=== PATIENT | male | born 1955 | race Caucasian/White ===

== ENCOUNTER → 2018-04-28 16:17 | Outpatient (CLI) | payer OTHER, SELFPAY ==
--- NOTE | 2018-04-28 16:37 | DI.MRI.S_ITS ---
PROCEDURE: MR CERVICAL SPINE WO CON INDICATIONS: Neck pain. Bilateral medial elbow pain. Bilateral hand numbness TECHNIQUE: Noncontrast sagittal T1 spin echo and T2 fast spin echo, sagittal STIR, foraminal oblique sagittal T2 fast spin echo, and axial gradient echo or T2 fast spin echo through the cervical spine. COMPARISON: None. FINDINGS: Image quality: Excellent. Alignment and Curvature: There is reversal of cervical curvature. There is trace anterolisthesis of C3 on C4, trace retrolisthesis of C4 on C5, C5 on C6, C7 on T1. Bone Marrow: Marrow demonstrates normal overall signal. Mild reactive endplate changes are present at T1-T2 as well as C5-6, minimal throughout the remainder of the cervical spine. Spinal Cord: Visualized spinal cord has normal size and signal. No cerebellar tonsillar herniation. Paraspinous Soft Tissues: No paravertebral masses. Prevertebral soft tissues are normal in thickness. Discs: Severe desiccation is present throughout the cervical spine. C2-C3: Mild disc bulge without spinal stenosis. Moderate to severe left foraminal narrowing with uncovertebral hypertrophy. C3-C4: Mild disc bulge with mild spinal stenosis. Severe left and moderate to severe right foraminal narrowing with uncovertebral hypertrophy. C4-C5: Mild disc bulge with severe spinal stenosis. Severe bilateral foraminal narrowing with uncovertebral hypertrophy. C5-C6: Mild disc bulge with severe spinal stenosis and severe right and moderate to severe left foraminal narrowing. Uncovertebral hypertrophy is present. C6-C7: Mild disc bulge with moderate to severe spinal stenosis. Foramina are obscured in part secondary to motion. However there still to be high degree of bilateral foraminal narrowing with uncovertebral hypertrophy. C7-T1: Mild disc bulge with mild spinal stenosis. Moderate spinal stenosis is present. Foramina are obscured. However there is felt to be at least moderate bilateral foraminal narrowing, left greater than right. IMPRESSION: 1. Significant multilevel foraminal narrowing. 2. Severe spinal stenosis at C4-5, C5-6 secondary to disc bulges with contributing factor of retrolisthesis and uncovertebral arthropathy. 3. Significant multilevel foraminal narrowing, severe at C3-4, C4-5, C5-6 secondary to uncovertebral arthropathy. Dictated by: Alexus Perez M.D. on 04/29/2018 at 9:13 Approved by: Alexus Perez M.D. on 04/29/2018 at 9:26
== END ==
PROVIDERS: Family Provider Family Medicine; PCP Family Medicine; Visit Provider Family Medicine
DX: M48.02 Spinal stenosis, cervical region (principal); M43.12 Spondylolisthesis, cervical region; M54.2 Cervicalgia; M25.522 Pain in left elbow; M25.521 Pain in right elbow; R20.0 Anesthesia of skin
CPT/HCPCS: 72141

== ENCOUNTER → 2018-06-27 15:25 | Outpatient (CLI) | payer OTHER, SELFPAY ==
--- NOTE | 2018-06-27 | DI.RAD.S_ITS ---
PROCEDURE: XR FOOT RT MIN 3V INDICATIONS: RIGHT FOOT PAIN TECHNIQUE: 3 views of the foot were acquired. COMPARISON: None. FINDINGS: Bones: No fractures or dislocations. No suspicious bony lesions. Diffuse DIP degenerative joint space narrowing is present. Small calcaneal spur is present. Soft tissues: No tibiotalar joint effusion. Achilles tendon appears normal. IMPRESSION: Diffuse DIP degenerative narrowing. If clinical concern persists, MRI is recommended for further evaluation. Dictated by: Alexus Perez M.D. on 06/27/2018 at 17:06 Approved by: Alexus Perez M.D. on 06/27/2018 at 17:07
== END ==
PROVIDERS: Family Provider Family Medicine; PCP Family Medicine; Visit Provider Family Medicine
DX: M79.671 Pain in right foot (principal); M77.31 Calcaneal spur, right foot
CPT/HCPCS: 73630

== ENCOUNTER 2018-11-30 04:59 | Emergency (ER) | payer OTHER, SELFPAY ==
[2018-11-30 05:00] VITALS: BP 168/117; PULSE 99; RESP 18; TEMP 36.4; O2SAT 97; BMI 36.2
[2018-11-30] MEDS: methylPREDNISolone 125 MG/2 ML VIAL IV (05:29)
[2018-11-30] MEDS: FAMOTIDINE 20 MG/50 ML PIGGYBACK 200 MG IV (05:30)
[2018-11-30] MEDS: diphenhydrAMINE 50 MG/ML VIAL 25 MG IV (05:30)
--- NOTE | 2018-11-30 05:44 | ED_ITS ---
HPI - Skin/Abscess/Foreign Bdy General Chief complaint: Skin/Abscess/Foreign Body Stated complaint: woke up with itchy rash/hives all over Time Seen by Provider: 11/30/18 05:00 Source: patient Mode of arrival: ambulatory Limitations: no limitations History of Present Illness HPI narrative: 62-year-old male nonsmoker with history of hypertension, factor 5 Leiden and hyperlipidemia presents with a chief complaint of widespread itching rash over the course of last night and this morning. He had an episode a few days ago as well which was much more mild. He thinks it may be due to the ingestion of a small watermelon that is new for him. He states it tasted a bit funny so perhaps that is the cause. He denies any swelling of tongue, lips or throat. He denies any new medications, lotions, soaps or pets. MD complaint: rash Onset (ago): hour(s) Tetanus up to date: yes Location: generalized Severity: moderate Quality: pruritic Relieving factors: none Exacerbating factors: none Associated symptoms: denies other symptoms Treatments prior to arrival: Benadryl Related Data Home Medications Medication Instructions Recorded Confirmed HYDROCHLOROTHIAZIDE (Hydrodiuril / 25 mg PO DAILY #0 09/07/09 Hctz) WARFARIN SODIUM (COUMADIN) 8 mg PO Q DAY #0 10/07/10 lisinopril 20 mg PO QDAY #0 08/09/16 lovastatin 20 mg PO HS #0 08/09/16 Previous Rx's Medication Instructions Recorded dexamethasone 4 mg PO Q8H 5 Days #15 tab 11/30/18 Allergies Allergy/AdvReac Type Severity Reaction Status Date / Time prednisone AdvReac Intermediate Anxiety Verified 11/30/18 05:26 Review of Systems Constitutional Denies chills, Denies fever(s), Denies lethargy and Denies weakness Eyes Denies change in vision, Denies eye discharge, Denies irritation and Denies loss of vision ENT Ears, Nose, Mouth, and Throat: Denies change in voice, Denies neck pain and De nies sore throat Cardiovascular Denies chest pain, Denies irregular heart rhythm, Denies lightheadedness, Denies palpitations, Denies dyspnea, Denies dyspnea on exertion and Denies orthopnea Respiratory Denies cough, Denies dyspnea, Denies dyspnea on exertion and Denies wheezing Gastrointestinal Gastrointestinal: Denies abdominal pain, Denies change in bowel habits, Denies diarrhea, Denies nausea and Denies vomiting Genitourinary Denies hematuria, Denies flank pain, Denies urinary incontinence and Denies urinary urgency Musculoskeletal Denies neck pain Integumentary/Breasts Reports pruritus, Denies erythema, Reports rash and Denies wounds Neurologic Denies confusion, Denies loss of vision and Denies weakness Psychiatric Denies anxiety, Denies confusion, Denies depression, Denies homicidal ideation and Denies suicidal ideation Endocrine Denies palpitations Hematologic/Lymphatic Denies easy bruising Allergic/Immunologic Denies wheezing PFSH Social History Smoking Status: Never smoker alcohol intake: current Exam Narrative Exam Narrative: GEN: AOx3 and in mild distress EYES: Pupils are equal, round, and reactive to light and accommodation. Extraoccular muscles are intact bilaterally. There is no subconjunctival hemorrhage or exudate. ENT: No tongue, lip or throat swelling CHEST: Lungs are clear to auscultation bilaterally and free of wheezes, rales, or rhonchi. Heart rate is regular rhythm, there are no murmurs, clicks, rubs, or gallops. There is no chest wall tenderness. ABD: Abdomen is soft and nontender. There is no guarding or rebound. Bowel sounds are normal in all 4 quadrants. There is no mass or organomegaly. EXT: Full painless ROM of all extremities with no loss of sensation or strength. SKIN: Widespread pruritic, erythematous blanching rash Initial Vital Signs Initial Vital Signs: Vital Signs Temperature 97.5 F L 11/30/18 05:00 Pulse Rate 99 H 11/30/18 05:00 Respiratory Rate 18 11/30/18 05:00 Blood Pressure 168/117 H 11/30/18 05:00 Pulse Oximetry 97 11/30/18 05:00 Course Orders Ordered: Discontinued Medications Diphenhydramine HCl (Benadryl) 25 mg IV NOW ONE Stop: 11/30/18 05:10 Last Admin: 11/30/18 05:30 Dose: 25 mg Famotidine (Pepcid) 20 mg in 50 mls @ 200 mls/hr IV NOW ONE Stop: 11/30/18 05:23 Last Infusion: 11/30/18 05:45 Dose: 0 mls/hr Admin: 11/30/18 05:30 Dose: 200 mls/hr Methylprednisolone (Solu-Medrol 125 Mg Vial) 125 mg IV NOW ONE Stop: 11/30/18 05:10 Last Admin: 11/30/18 05:29 Dose: 125 mg Vital Signs - 8 hr 11/30/18 05:00 Temperature 97.5 F L Pulse Rate 99 H Respiratory Rate 18 Blood Pressure 168/117 H Pulse Oximetry 97 Discharge Plan Departure Patient Disposition: Home Clinical Impression: Allergic reaction Qualifiers: Encounter type: initial encounter Qualified Code(s): T78.40XA - Allergy, unspecified, initial encounter Instructions: DI for General Allergic Reactions Activity Restrictions/Additional Instructions: *You have been diagnosed with [ allergic reaction ] *What to do: *Take medications as directed including the provided prescription as well as [id number]-[id number] Benadryl and Pepcid *Follow up with your primary care provider in 2-3 days, call for an appointment. Let them know you were seen in the Emergency Department and that we ask that you be seen in follow up *Return to ER if you should have any new, worsening or concerning symptoms Prescriptions: New dexamethasone 4 mg tablet 4 mg PO Q8H 5 Days Qty: 15 RF: 0 No Action HYDROCHLOROTHIAZIDE (Hydrodiuril / Hctz) 25 mg PO DAILY Qty: 0 RF: 0 WARFARIN SODIUM (COUMADIN) 8 mg PO Q DAY Qty: 0 RF: 0 lisinopril 20 MG tablet 20 mg PO QDAY Qty: 0 RF: 0 lovastatin 20 MG tablet 20 mg PO HS Qty: 0 RF: 0 Referrals: Michael Shook MD [Primary Care Provider] -
--- NOTE | 2018-11-30 05:58 | PC.NURSE ---
Re-evaluated pt. Pt states he has less itching, but sleepy now. Redness of skin has greatly improved. Dr. Ortiz updated.
[2018-11-30 06:30] VITALS: BP 160/101; PULSE 81; RESP 18; O2SAT 95
== END 2018-11-30 06:30 | disposition home or self-care (01) ==
PROVIDERS: Emergency Provider Emergency Medicine; Family Provider Family Medicine; PCP Family Medicine
DX: T78.40XA Allergy, unspecified, initial encounter (principal); R21 Rash and other nonspecific skin eruption
CPT/HCPCS: 96365; 96375; 99283; 99284; J1200; J2930

== ENCOUNTER → 2018-12-19 08:22 | Outpatient (REF) | payer OTHER, SELFPAY ==
[2018-12-19 08:30] LABS: INR 2.5 (0.9-1.3); Prothrombin Time 28.9 SECONDS (10.1-12.7)
== END ==
LOC: LAB 08:22
PROVIDERS: Family Provider Family Medicine; PCP Family Medicine; Visit Provider Family Medicine
DX: Z79.01 Long term (current) use of anticoagulants (principal)
CPT/HCPCS: 85610

== ENCOUNTER → 2019-01-19 08:13 | Outpatient (REF) | payer OTHER, SELFPAY ==
[2019-01-19 09:20] LABS: INR 1.9 (0.9-1.3); Prothrombin Time 21.9 SECONDS (10.1-12.7)
== END ==
LOC: LAB 08:13
PROVIDERS: Family Provider Family Medicine; PCP Family Medicine; Visit Provider Family Medicine
DX: Z79.01 Long term (current) use of anticoagulants (principal)
CPT/HCPCS: 85610

== ENCOUNTER → 2019-02-23 07:35 | Outpatient (ROUT) | payer OTHER, SELFPAY ==
[2019-02-23 07:43] LABS: INR 2.1 (0.9-1.3); Prothrombin Time 24.1 SECONDS (10.1-12.7)
== END ==
PROVIDERS: Family Provider Family Medicine; PCP Family Medicine; Visit Provider Family Medicine
DX: Z79.01 Long term (current) use of anticoagulants (principal)
CPT/HCPCS: 85610

== ENCOUNTER → 2019-03-27 13:23 | Outpatient (ROUT) | payer OTHER, SELFPAY ==
[2019-03-27 13:50] LABS: INR 2.2 (0.9-1.3); Prothrombin Time 26.1 SECONDS (10.1-12.7)
== END ==
PROVIDERS: Family Provider Family Medicine; PCP Family Medicine; Visit Provider Family Medicine
DX: Z79.01 Long term (current) use of anticoagulants (principal)
CPT/HCPCS: 85610

== ENCOUNTER → 2019-04-14 08:36 | Outpatient (ROUT) | payer OTHER, SELFPAY ==
[2019-04-14 09:07] LABS: INR 2.7 (0.9-1.3); Prothrombin Time 31.3 SECONDS (10.1-12.7)
== END ==
PROVIDERS: Family Provider Family Medicine; PCP Family Medicine; Visit Provider Family Medicine
DX: Z79.01 Long term (current) use of anticoagulants (principal)
CPT/HCPCS: 85610

== ENCOUNTER → 2019-04-27 10:32 | Outpatient (CLI) | payer OTHER, SELFPAY ==
--- NOTE | 2019-04-27 | DI.RAD.S_ITS ---
PROCEDURE: XR ABDOMEN 1V INDICATIONS: ABDOMINAL PAIN TECHNIQUE: One view of the abdomen acquired. COMPARISON: [facility], CT, IVP (ABD & PEL WWO CONTRAST), 06/18/2014, 7:28. FINDINGS: Surgical changes and devices: None. Bowel: Bowel gas pattern is normal. Soft tissues: No suspicious abdominal calcifications. Visualized solid organ contours appear normal in size. Left renal cyst redemonstrated. Bones: No suspicious bony lesions. IMPRESSION: Normal bowel gas pattern and no source for abdominal pain identified radiographically. If pain persists, consider CT. Dictated by: Ryan DOZIER Interpreted: Rolo Correa MD on 04/27/2019 at 11:19 Approved by: Rolo Correa M.D. on 04/27/2019 at 11:54
== END ==
PROVIDERS: Family Provider Family Medicine; PCP Family Medicine; Visit Provider Family Medicine
DX: R10.9 Unspecified abdominal pain (principal)
CPT/HCPCS: 74018

== ENCOUNTER → 2019-05-24 12:41 | Outpatient (ROUT) | payer OTHER, SELFPAY ==
[2019-05-24 12:48] LABS: INR 2.3 (0.9-1.3); Prothrombin Time 26.3 SECONDS (10.1-12.7)
== END ==
PROVIDERS: Family Provider Family Medicine; PCP Family Medicine; Visit Provider Family Medicine
DX: Z79.01 Long term (current) use of anticoagulants (principal)
CPT/HCPCS: 85610

== ENCOUNTER → 2019-08-24 14:13 | Outpatient (ROUT) | payer OTHER, SELFPAY ==
[2019-08-24 14:49] LABS: INR 1.4 (0.9-1.3); Prothrombin Time 16.4 SECONDS (10.1-12.7)
== END ==
PROVIDERS: Family Provider Family Medicine; PCP Family Medicine; Visit Provider Family Medicine
DX: D68.59 Other primary thrombophilia (principal); Z86.718 Personal history of other venous thrombosis and embolism
CPT/HCPCS: 85610

== ENCOUNTER → 2019-09-07 13:53 | Outpatient (ROUT) | payer OTHER, SELFPAY ==
[2019-09-07 14:03] LABS: INR 2.1 (0.9-1.3); Prothrombin Time 25.2 SECONDS (10.1-12.7)
== END ==
PROVIDERS: Family Provider Family Medicine; PCP Family Medicine; Visit Provider Family Medicine
DX: Z86.718 Personal history of other venous thrombosis and embolism (principal); D68.59 Other primary thrombophilia
CPT/HCPCS: 85610

== ENCOUNTER → 2019-10-12 11:56 | Outpatient (ROUT) | payer OTHER, SELFPAY ==
[2019-10-12 12:10] LABS: INR 2.9 (0.9-1.3); Prothrombin Time 33.8 SECONDS (10.1-12.7)
== END ==
PROVIDERS: Family Provider Family Medicine; PCP Family Medicine; Visit Provider Family Medicine
DX: D68.59 Other primary thrombophilia (principal)
CPT/HCPCS: 85610

== ENCOUNTER → 2019-11-02 13:12 | Outpatient (ROUT) | payer OTHER, SELFPAY ==
[2019-11-02 13:47] LABS: INR 2.2 (0.9-1.3); Prothrombin Time 25.9 SECONDS (10.1-12.7)
== END ==
PROVIDERS: Family Provider Family Medicine; PCP Family Medicine; Visit Provider Family Medicine
DX: Z79.01 Long term (current) use of anticoagulants (principal)
CPT/HCPCS: 85610

== ENCOUNTER → 2019-11-23 12:18 | Outpatient (ROUT) | payer OTHER, SELFPAY ==
[2019-11-23 12:25] LABS: INR 2.8 (0.9-1.3); Prothrombin Time 32.1 SECONDS (10.1-12.7)
== END ==
PROVIDERS: Family Provider Family Medicine; PCP Family Medicine; Visit Provider Family Medicine
DX: Z79.01 Long term (current) use of anticoagulants (principal)
CPT/HCPCS: 85610

== ENCOUNTER → 2020-02-06 10:38 | Outpatient (ROUT) | payer OTHER, SELFPAY ==
[2020-02-06 10:50] LABS: INR 2.6 (0.9-1.3); Prothrombin Time 29.9 SECONDS (10.1-12.7)
== END ==
PROVIDERS: Family Provider Family Medicine; PCP Family Medicine; Visit Provider Family Medicine
DX: Z79.01 Long term (current) use of anticoagulants (principal)
CPT/HCPCS: 85610

== ENCOUNTER → 2020-04-10 09:05 | Outpatient (ROUT) | payer OTHER, SELFPAY ==
[2020-04-10 09:14] LABS: INR 2.5 (0.9-1.3); Prothrombin Time 28.1 SECONDS (10.1-12.7)
== END ==
PROVIDERS: Family Provider Family Medicine; PCP Family Medicine; Visit Provider Family Medicine
DX: Z86.718 Personal history of other venous thrombosis and embolism (principal); D68.59 Other primary thrombophilia
CPT/HCPCS: 85610

== ENCOUNTER → 2020-05-22 08:14 | Outpatient (ROUT) | payer OTHER, SELFPAY ==
[2020-05-22 08:21] LABS: INR 2.2 (0.9-1.3); Prothrombin Time 25.6 SECONDS (10.1-12.7)
== END ==
PROVIDERS: Family Provider Family Medicine; PCP Family Medicine; Visit Provider Family Medicine
DX: D68.59 Other primary thrombophilia (principal)
CPT/HCPCS: 85610

== ENCOUNTER → 2020-06-12 09:28 | Outpatient (ROUT) | payer OTHER, SELFPAY ==
[2020-06-12 09:39] LABS: INR 2.4 (0.9-1.3); Prothrombin Time 28.1 SECONDS (10.1-12.7)
== END ==
PROVIDERS: Family Provider Family Medicine; PCP Family Medicine; Visit Provider Family Medicine
DX: Z79.01 Long term (current) use of anticoagulants (principal)
CPT/HCPCS: 85610

== ENCOUNTER → 2020-07-10 15:36 | Outpatient (ROUT) | payer OTHER, SELFPAY ==
[2020-07-10 15:55] LABS: INR 2.7 (0.9-1.3); Prothrombin Time 30.6 SECONDS (10.1-12.7)
== END ==
PROVIDERS: Family Provider Family Medicine; PCP Family Medicine; Visit Provider Family Medicine
DX: D68.59 Other primary thrombophilia (principal); Z86.718 Personal history of other venous thrombosis and embolism
CPT/HCPCS: 85610

== ENCOUNTER → 2020-08-13 15:48 | Outpatient (ROUT) | payer OTHER, SELFPAY ==
[2020-08-13 15:58] LABS: INR 2.8 (0.9-1.3); Prothrombin Time 31.6 SECONDS (10.1-12.7)
== END ==
PROVIDERS: Family Provider Family Medicine; PCP Family Medicine; Visit Provider Family Medicine
DX: Z86.718 Personal history of other venous thrombosis and embolism (principal)
CPT/HCPCS: 85610

== ENCOUNTER → 2020-09-17 07:37 | Outpatient (ROUT) | payer OTHER, SELFPAY ==
[2020-09-17 07:45] LABS: INR 2.9 (0.9-1.3); Prothrombin Time 32.4 SECONDS (10.1-12.7)
== END ==
PROVIDERS: Family Provider Family Medicine; PCP Family Medicine; Visit Provider Family Medicine
DX: Z79.01 Long term (current) use of anticoagulants (principal)
CPT/HCPCS: 85610

== ENCOUNTER → 2021-11-25 16:58 | Outpatient (CLI) | payer OTHER, SELFPAY ==
--- NOTE | 2021-11-25 17:01 | DI.RAD.S_ITS ---
PROCEDURE: XR KUB INDICATIONS: HEMATURIA TECHNIQUE: One view of the abdomen acquired. COMPARISON: [facility], CT, CT IVP, 08/06/2020, 15:02. FINDINGS: Surgical changes and devices: None. Bowel: Scattered small bowel and colonic gas. Soft tissues: No suspicious abdominal calcifications. Visualized solid organ contours appear normal in size. Bones: No suspicious bony lesions. Subchondral cystic change at the hips. Mild joint space narrowing. IMPRESSION: No kidney stones identified. Consider CT KUB or CT IVP for further evaluation. Dictated by: Ruben Mccray M.D. on 11/25/2021 at 17:47 Approved by: Ruben Mccray M.D. on 11/25/2021 at 17:50
== END ==
PROVIDERS: Family Provider Family Medicine; PCP Family Medicine; Referring Provider Family Medicine; Visit Provider Family Medicine
DX: R31.9 Hematuria, unspecified (principal)
CPT/HCPCS: 74018

== ENCOUNTER → 2022-01-17 13:24 | Outpatient (CLI) | payer OTHER, SELFPAY ==
--- NOTE | 2022-01-17 13:25 | DI.RAD.S_ITS ---
PROCEDURE: XR CHEST 2V INDICATIONS: cough TECHNIQUE: 2 views of the chest were acquired. COMPARISON: [facility], CHEST 2 VIEW, 02/05/2016, 11:05. [facility], CHEST 2 VIEW, 12/29/2017, 17:01. FINDINGS: Surgical changes and devices: Postoperative change of the right shoulder can be seen. Lungs and pleura: An incomplete inspiratory result is noted, causing a crowded appearance to the lung markings. No focal infiltrates are seen. No pneumothorax or significant pleural effusions are seen. Mediastinum: Mediastinal contours are normal. Heart size is normal. Bones and chest wall: No suspicious bony abnormalities. Age-appropriate bony degenerative changes are seen. Soft tissues appear unremarkable. IMPRESSION: Low lung volumes, without a focal infiltrate identified. Dictated by: Quique Acosta M.D. on 01/17/2022 at 12:58 Approved by: Quique Acosta M.D. on 01/17/2022 at 12:58
== END ==
PROVIDERS: Family Provider Family Medicine; PCP Family Medicine; Referring Provider Surgery; Visit Provider Surgery
DX: R05.9 Cough, unspecified (principal)
CPT/HCPCS: 71046

== ENCOUNTER → 2022-01-20 09:47 | Outpatient (CLI) | payer OTHER, SELFPAY | PROVIDERS: Family Provider Family Medicine; PCP Family Medicine; Referring Provider Surgery; Visit Provider Surgery | DX: R07.9 Chest pain, unspecified (principal) | CPT/HCPCS: 93005 ==

== ENCOUNTER 2022-02-22 11:48 | Emergency (ER) | payer OTHER, SELFPAY ==
[2022-02-22 11:52] VITALS: BP 197/102; PULSE 55; RESP 16; TEMP 36.9; O2SAT 98; BMI 36.6
--- NOTE | 2022-02-22 11:58 | DI.US.S_ITS ---
PROCEDURE: US PERIPH VENOUS LOW EXTREM RT INDICATIONS: RIGHT LEG PAIN, EDEMA TECHNIQUE: Real-time imaging, as well as color and pulse Doppler interrogation, were performed of the lower extremity deep veins from the inguinal ligament to the popliteal fossa. COMPARISON: None. FINDINGS: The common femoral, femoral and popliteal veins are normally compressible, and free of intraluminal thrombus. Color and pulse Doppler demonstrate normal phasic intraluminal flow. There is normal augmentation response to distal compression maneuver. IMPRESSION: No evidence of DVT, right lower extremity Approved by: Garrick Garrett M.D. on 02/22/2022 at 12:09
--- NOTE | 2022-02-22 14:56 | ED.LOWEXIN ---
HPI - Extremity Injury (Lower) <Hanna Fairbanks PA-C - Last Filed: 02/22/22 20:43> General Chief Complaint: Extremity Injury, Lower Stated Complaint: Right leg swollen- has hx of blood clots Time Seen by Provider: 02/22/22 12:11 History of Present Illness HPI Narrative: Patient is a 66-year-old man presenting with right leg swelling since this morning. Patient has factor 5 Leiden and takes warfarin. He denies any shortness of breath, chest pains, numbness, tingling, or pain in his lower right extremity. Patient states the swelling has started to go down since this morning. He states that his right leg does usually swell more than his left leg. He reports increased activity yesterday and was going up and down a ladder a lot. He has bilateral venous stasis and chronic edema for which he wears compression socks regularly and takes 20 mg of Lasix per day. Patient is presenting today with a main concern of a DVT. Related Data Home Medications Medication Instructions Recorded Confirmed ascorbic acid (vitamin C) 500 mg mg PO 01/16/22 02/04/22 capsule cholecalciferol (vitamin D3) 125 125 mcg PO DAILY 01/16/22 02/04/22 mcg (5,000 unit) capsule lisinopril 20 1 tab PO DAILY 01/16/22 02/04/22 mg-hydrochlorothiazide 25 mg tablet lovastatin 40 mg tablet 40 mg PO DAILY 01/16/22 02/04/22 multivitamin with minerals 1 tab PO DAILY 01/16/22 02/04/22 (Multiple Vitamin-Minerals) tamsulosin 0.4 mg capsule 0.4 mg PO DAILY 01/16/22 02/04/22 vitamin B complex 1 cap PO DAILY 01/16/22 02/04/22 warfarin 2 mg tablet 2 mg PO DAILY 01/16/22 02/04/22 warfarin 5 mg tablet 5 mg PO DAILY 01/16/22 02/04/22 Previous Rx's Medication Instructions Recorded sodium sul 1.479 gram-potas ch See Rx Instructions PO PER PKG DIR 01/16/22 0.188 gram-magnes sul 0.225 gram #24 tab tablet (Sutab) Allergies Allergy/AdvReac Type Severity Reaction Status Date / Time prednisone AdvReac Intermediate Anxiety Verified 02/04/22 09:14 Review of Systems <Hanna Fairbanks PA-C - Last Filed: 02/22/22 20:43> Review of Systems Narrative: GENERAL: Denies fatigue, fever, or chills HEENT: Denies ear pain, vision changes, sore throat, or difficulty swallowing RESPIRATORY: Denies shortness of breath, cough, or wheezing CARDIOVASCULAR: See HPI GASTROINTESTINAL: Denies, nausea, vomiting, changes in bowel movements, or abdominal pain : Denies dysuria, frequency, hematuria, or flank pain MUSCULOSKELETAL: Denies weakness, arthralgias, or myalgias SKIN: See HPI NEUROLOGIC: Denies weakness, dizziness, headache, numbness, tingling or confusion PSYCHIATRIC: No concerning psychosocial issues. Patient History <Hanna Fairbanks PA-C - Last Filed: 02/22/22 20:43> Medical History Enlarged prostate Factor V Leiden Hyperlipemia Hypertension Kidney stones Family History Father Cancer Social History Smoking Status: Never smoker alcohol intake: current Smoking Status: Never smoker alcohol intake frequency: holidays/special occasions only Substance Use Type: does not use Exam <Hanna Fairbanks PA-C - Last Filed: 02/22/22 20:43> Narrative Exam Narrative: GENERAL: 66 year old patient appears stated age. Well-developed patient, in no distress. HEAD: Atraumatic. Normocephalic. EYES: Pupils equal round and reactive. Extraocular motions intact. No scleral icterus. No injection or drainage. ENT: Nose without bleeding, purulent drainage. Throat without erythema, tonsillar hypertrophy or exudate. Airway patent. NECK: Trachea midline. Non tender CARDIOVASCULAR: Regular rate and rhythm without murmurs, gallops, or rubs. RESPIRATORY: Clear to auscultation. Breath sounds equal bilaterally. No wheezes, rales, or rhonchi. GASTROINTESTINAL: Abdomen soft, non-tender, nondistended. EXTREMITIES: Bilateral 2+ pitting edema, right calf presents with increased swelling, no erythema present and right leg is not exceptionally hot to touch, bilateral discoloration present that is consistent with venous stasis, full sensation in both lower extremities, he has no pain to palpation. BACK: Nontender without deformity or crepitance. No flank tenderness. NEURO: AOx3. SKIN: No rash or erythema of visible areas Initial Vital Signs Initial Vital Signs: Vital Signs Temperature 98.4 F 02/22/22 11:52 Pulse Rate 55 L 02/22/22 11:52 Respiratory Rate 16 02/22/22 11:52 Blood Pressure 197/102 H 02/22/22 11:52 Pulse Oximetry 98 02/22/22 11:52 <Danish Ortiz DO - Last Filed: 02/23/22 02:07> Initial Vital Signs Initial Vital Signs: Vital Signs Temperature 98.4 F 02/22/22 11:52 Pulse Rate 55 L 02/22/22 11:52 Respiratory Rate 16 02/22/22 11:52 Blood Pressure 197/102 H 02/22/22 11:52 Pulse Oximetry 98 02/22/22 11:52 Course <Hanna Fairbanks PA-C - Last Filed: 02/22/22 20:43> Orders Ordered: ED Orders 02/22/22 11:58 US periph venous low extrem rt Stat 02/22/22 14:55 Prothrombin Time INR Stat Vital Signs Vital signs: Vital Signs - 8 hr 02/22/22 14:59 Pulse Rate 80 Respiratory Rate 18 Blood Pressure 169/89 H Pulse Oximetry 96 <Danish Ortiz DO - Last Filed: 02/23/22 02:07> Orders Ordered: ED Orders 02/22/22 11:58 US periph venous low extrem rt Stat 02/22/22 14:55 Prothrombin Time INR Stat Vital Signs Vital signs: Vital Signs - 8 hr 02/22/22 14:59 Pulse Rate 80 Respiratory Rate 18 Blood Pressure 169/89 H Pulse Oximetry 96 MDM - Extremity Injury (Lower) <ARIS Thompson Last Filed: 02/22/22 20:43> Lab Data Labs: Lab Results 02/22/22 Range/Units 14:55 PT 24.6 H (10.1-12.7) SECONDS INR 2.2 H (0.9-1.3) Imaging Data US - DVT: Radiologist's Impression: [address] [address] Ultrasound Report Signed Patient: Chandan Felzi MR#: [id number] : 1955 Acct:[id number] Age/Sex: 66 / M Date of Service: 02/22/22 Loc: ED Accession Number: [id number] ?? Procedure: US periph venous low extrem rt Ordering Provider: Ronel Cunningham D.O. PROCEDURE:? US PERIPH VENOUS LOW EXTREM RT ? INDICATIONS:? RIGHT LEG PAIN, EDEMA ? TECHNIQUE:? Real-time imaging, as well as color and pulse Doppler interrogation, were performed of the lower extremity deep veins from the inguinal ligament to the popliteal fossa.? ? COMPARISON:? None. ? FINDINGS:? The common femoral, femoral and popliteal veins are normally compressible, and free of intraluminal thrombus.? Color and pulse Doppler demonstrate normal phasic intraluminal flow.? There is normal augmentation response to distal compression maneuver. ? ? IMPRESSION:? No evidence of DVT, right lower extremity ? ? ? Approved by: Garrick Garrett M.D. on 02/22/2022 at 12:09? [facility] Narrative Medical decision making narrative: Patient is a 66-year-old male presenting with right lower extremity swelling starting this morning. He has factor 5 Leiden and takes warfarin. An ultrasound was ordered which came back with no evidence of DVT. His INR was checked which came back at a therapeutic level of 2.2. He exhibited no respiratory distress and his lungs were clear to auscultation bilaterally. Based on the following, it is unlikely that he is suffering from a DVT and that his increased edema is to to his increased physical activity yesterday. I instructed him to continue wearing his compression socks as tolerated, and to double his Lasix dose tonight to help with his increased edema. Findings and discharge diagnosis discussed with patient/family followed by verbalization of understanding Return precautions discussed with patient/family whom verbalize understanding. <Danish Ortiz DO - Last Filed: 02/23/22 02:07> Lab Data Labs: Lab Results 02/22/22 Range/Units 14:55 PT 24.6 H (10.1-12.7) SECONDS INR 2.2 H (0.9-1.3) Discharge Plan Departure Patient Disposition: Home Clinical Impression: Lower leg edema Instructions: DI for Edema Due to Venous Stasis Activity Restrictions/Additional Instructions: As discussed, you can double your Lasix dose today to help decrease your swelling and then resume your regular dosing tomorrow. Continue wearing your compression socks as tolerated. Please return back to the ER with any increased leg swelling, pain, redness, shortness of breath, chest pain or any other concerning symptoms. *What to do: *Please continue to take your regular medications as directed. [ ] New medication prescriptions sent to your pharmacy: [ ] [ ] New medication written as a paper prescription [x] No new medications given *Please follow up with your primary care provider in 2-3 days, call for an appointment. Let them know you were seen in the Emergency Department and that we ask that you be seen in follow up. We will electronically transmit a record of today's note if your PCP is in our system *If you do not have a primary care provider please contact the [facility] at [phone] and they can help get you set up with a doctor in the community. *Return to Emergency Department if you should have any new, worsening or concerning symptoms, such as [fever greater than 101 F, shaking chills, worsening pain, persistent vomiting or other bothersome symptoms] Prescriptions: No Action Sutab 1.479-0.188- 0.225 gram tablet See Rx Instructions PO PER PKG DIR Qty: 24 0RF Rx Instructions: Take as directed by Physician warfarin 5 mg tablet 5 mg PO DAILY 0RF warfarin 2 mg tablet 2 mg PO DAILY 0RF tamsulosin 0.4 mg capsule 0.4 mg PO DAILY 0RF lisinopril-hydrochlorothiazide 20-25 mg tablet 1 tab PO DAILY 0RF lovastatin 40 mg tablet 40 mg PO DAILY 0RF cholecalciferol (vitamin D3) 125 mcg (5,000 unit) capsule 125 mcg PO DAILY 0RF ascorbic acid (vitamin C) 500 mg capsule PO 0RF vitamin B complex Capsule 1 cap PO DAILY 0RF Multiple Vitamin-Minerals Tablet 1 tab PO DAILY 0RF Referrals: Ok Douglass MD [Primary Care Provider] - <Danish Ortiz DO - Last Filed: 02/23/22 02:07> Cosign ED Attending Henrikature Attestation: I was immediately available in the department for consultation. This documentation has been reviewed and I agree with assessment and plan. Supervised by Danish Ortiz DO
[2022-02-22 14:59] VITALS: BP 169/89; PULSE 80; RESP 18; O2SAT 96
[2022-02-22 15:07] LABS: INR 2.2 (0.9-1.3); Prothrombin Time 24.6 SECONDS (10.1-12.7)
== END 2022-02-22 15:46 | disposition home or self-care (01) ==
PROVIDERS: Emergency Provider Physician Assistant; Family Provider Family Medicine; PCP Family Medicine
DX: R60.0 Localized edema (principal); Z79.01 Long term (current) use of anticoagulants
CPT/HCPCS: 36415; 85610; 93971; 99283; 99284

== ENCOUNTER → 2022-02-25 09:21 | Outpatient (CLI) | payer OTHER, SELFPAY ==
[2022-02-25 11:04] LABS: COVID19 -Nasal RAPID Negative (Negative)
== END ==
PROVIDERS: Family Provider Family Medicine; PCP Family Medicine; Visit Provider Surgery
DX: Z20.822 Contact with and (suspected) exposure to COVID-19 (principal); Z01.812 Encounter for preprocedural laboratory examination
CPT/HCPCS: 87635; C9803

== ENCOUNTER 2022-02-26 06:36 | Day surgery (SDC) | payer OTHER, SELFPAY ==
[2022-02-26] VITALS (8 sets, daily range): BP systolic 105–183; BP diastolic 75–91; PULSE 54–78; RESP 12–18; TEMP 36.2–36.4; O2SAT 92–98; BMI 36.2
--- NOTE | 2022-02-26 | PATH_ITS ---
[facility] Accession Number: [id number] No. of containers..01 Tissue . 01 Material submitted: . stomach - ANTRUM . 01 Diagnosis: Stomach, Antrum, Biopsy: Antral mucosa with no diagnostic abnormality. Negative for Helicobacter by immunohistochemistry. Negative for intestinal metaplasia. Negative for dysplasia and malignancy. . [facility] 03/03/2022 1544 Local . 01 Electronically signed: . Shannon Peña MD, Pathologist NPI- [id number] . 01 Gross description: . ANTRUM: Received in formalin are 3 fragment(s) of amaya, soft tissue measuring 0.5 x 0.2 x 0.1 cm to 0.3 x 0.1 x 0.1 cm submitted entirely in 1 cassette(s) /CPE 02/28/2022 0330 Local . 01 Microscopic: . An immunohistochemical stain was performed to evaluate for Helicobacter organisms and is negative. The control stain showed appropriate reactivity. . * This test was developed and its performance characteristics determined by [facility]. It has not been cleared or approved by the U.S. Food and Drug Administration. The FDA has determined that such clearance or approval is not necessary. This test is used for clinical purposes. It should not be regarded as investigational or for research. . 01 Pathologist provided ICD-10: K21.9, Z12.11 . 01 CPT . 682362, Q63219 Specimen Comment: A courtesy copy of this report has been sent to [phone] Performed at: 01 [facility] [address] [place] [address] [address] [facility], [place], [place] [id number] MD Jasen Cordova MD Phone: [phone]
[2022-02-26] MEDS: LACTATED RINGERS 1,000 ML 42 ML IV (07:29)
[2022-02-26] MEDS: LIDOCAINE 4% SOLN 50 ML 20 ML TOP (07:50)
--- NOTE | 2022-02-26 07:52 | PM.PREOP ---
Pre-operative Note COVID-19 COVID-19 status: Negative Result date/Date tested (Pos, Neg/Pending): 02/25/22 Interval Note History & Physical reviewed/Exam performed by Physician: Yes Changes to H&P: No H&P completed within 30 days and has changed as indicated here:: Patient has been bridged with Lovenox and take his last dose of Lovenox yesterday. ASA Class (for procedural sedation): II
[2022-02-26] MEDS: MIDAZOLAM 5 MG/5 ML VIAL 8 MG IV (08:26)
[2022-02-26] MEDS: fentaNYL 250 MCG/5 ML INJ 175 MCG IV (08:26)
--- NOTE | 2022-02-26 08:37 | PM.OP.EC ---
Operative Date/Time/Diagnoses Date of procedure: 02/26/22 Time of procedure: 08:37 Pre-op diagnosis: GERD, colon cancer screening Post-op diagnosis: same Procedure & Clinicians Study performed: EGD and colonoscopy Same procedure as scheduled: Yes Surgeon: James He Procedure Notes Procedure in detail: [place]: James He MD Procedure in detail: A timeout was performed. Bite blocked was placed. The patient was connected via sign monitors. The patient was positioned in a left lateral decubitus position. Sedation was administered with Versed and fentanyl. Once the patient was sedated the endoscope was inserted through the bite block and passed through the esophagus and stomach and into the duodenum. The duodenum appeared normal. The antrum was mildly erythematous and random biopsies were taken from the antrum. The rest of the stomach was normal. The endoscope was retroflexed and no hiatal hernia was noted. The scope was straightened and withdrawn into the esophagus. The Z-line was normal. The rest of the esophagus was normal. Findings: Mild antritis Next we repositioned the patient for a colonoscopy. A digital rectal exam was performed and was normal other than a moderately enlarged prostate. The colonoscope was inserted and advanced to the cecum. The appendiceal orifice was identified and photographed. The scope was slowly withdrawn over greater than 6 minutes. No abnormalities were noted other than a few scattered sigmoid diverticula. The scope was retroflexed in the rectum and mild hemorrhoids were noted. Findings: Mild hemorrhoids and a few scattered sigmoid diverticula EBL: 5 mL from the EGD biopsies Scope withdrawal time: 11 Sedation minutes: 36 Post-procedure Recommendations: Colonscopy in 10 years and Will call with biopsy results Disposition: PACU
== END 2022-02-26 09:40 | disposition home or self-care (01) ==
PROVIDERS: Family Provider Family Medicine; PCP Family Medicine; Referring Provider Surgery; Visit Provider Surgery
PROC: 0DJ08ZZ Inspection of Upper Intestinal Tract, Via Natural or Artificial Opening Endoscopic (ICD-10-PCS; CPT 43235; principal; 2022-02-26 07:45)
PROC: 0DJD8ZZ Inspection of Lower Intestinal Tract, Via Natural or Artificial Opening Endoscopic (ICD-10-PCS; CPT 45378; 2022-02-26 07:45)
DX: Z12.11 Encounter for screening for malignant neoplasm of colon (principal); K21.9 Gastro-esophageal reflux disease without esophagitis; K29.60 Other gastritis without bleeding; K64.8 Other hemorrhoids; K57.30 Diverticulosis of large intestine without perforation or abscess without bleeding
CPT/HCPCS: 43239; 45378; 99152; 99153; J2250; J3010

== ENCOUNTER → 2022-06-11 08:03 | Outpatient (ROUT) | payer OTHER, SELFPAY ==
[2022-06-11 08:37] LABS: INR 2.9 (0.9-1.3); Prothrombin Time 33.6 SECONDS (10.1-12.7)
== END ==
PROVIDERS: Family Provider Family Medicine; PCP Family Medicine; Visit Provider Family Medicine
DX: Z86.718 Personal history of other venous thrombosis and embolism (principal)
CPT/HCPCS: 85610

== ENCOUNTER → 2022-07-10 07:41 | Outpatient (ROUT) | payer OTHER, SELFPAY ==
[2022-07-10 07:52] LABS: INR 3.6 (0.9-1.3); Prothrombin Time 41.6 SECONDS (10.1-12.7)
== END ==
PROVIDERS: Family Provider Family Medicine; PCP Family Medicine; Visit Provider Family Medicine
DX: Z86.718 Personal history of other venous thrombosis and embolism (principal)
CPT/HCPCS: 85610

== ENCOUNTER → 2022-07-24 08:32 | Outpatient (ROUT) | payer OTHER, SELFPAY ==
[2022-07-24 08:38] LABS: INR 2.3 (0.9-1.3); Prothrombin Time 26.1 SECONDS (10.1-12.7)
== END ==
PROVIDERS: Family Provider Family Medicine; PCP Family Medicine; Visit Provider Family Medicine
DX: Z86.718 Personal history of other venous thrombosis and embolism (principal)
CPT/HCPCS: 85610

== ENCOUNTER → 2022-08-05 10:53 | Outpatient (ROUT) | payer OTHER, SELFPAY ==
[2022-08-05 11:05] LABS: INR 3.1 (0.9-1.3); Prothrombin Time 36.5 SECONDS (10.1-12.7)
== END ==
PROVIDERS: Family Provider Family Medicine; PCP Family Medicine; Visit Provider Family Medicine
DX: Z86.718 Personal history of other venous thrombosis and embolism (principal)
CPT/HCPCS: 85610

== ENCOUNTER → 2022-08-31 11:01 | Outpatient (CLI) | payer OTHER, SELFPAY ==
[2022-09-02 07:53] LABS: PSA Free % 23.1 % (.); PSA, Total 8.6 ng/mL (0.0-4.0)
== END ==
PROVIDERS: Family Provider Family Medicine; PCP Family Medicine; Referring Provider Family Medicine; Visit Provider Family Medicine
DX: R97.20 Elevated prostate specific antigen [PSA] (principal)
CPT/HCPCS: 36415; 84153; 84154

== ENCOUNTER → 2022-10-16 08:04 | Outpatient (ROUT) | payer OTHER, SELFPAY ==
[2022-10-16 08:48] LABS: INR 2.5 (0.9-1.3); Prothrombin Time 29.1 SECONDS (10.1-12.7)
== END ==
PROVIDERS: Family Provider Family Medicine; PCP Family Medicine; Visit Provider Family Medicine
DX: Z86.718 Personal history of other venous thrombosis and embolism (principal)
CPT/HCPCS: 85610

== ENCOUNTER → 2022-11-19 08:26 | Outpatient (ROUT) | payer OTHER, SELFPAY ==
[2022-11-19 08:37] LABS: INR 3.4 (0.9-1.3); Prothrombin Time 39.7 SECONDS (10.1-12.7)
== END ==
PROVIDERS: Family Provider Family Medicine; PCP Family Medicine; Visit Provider Family Medicine
DX: Z86.718 Personal history of other venous thrombosis and embolism (principal)
CPT/HCPCS: 85610

== ENCOUNTER → 2022-11-28 14:58 | Outpatient (CLI) | payer OTHER, SELFPAY ==
--- NOTE | 2022-11-28 15:00 | DI.RAD.S_ITS ---
PROCEDURE: XR CERVICAL SPINE 4V OR 5V INDICATIONS: NECK PAIN TECHNIQUE: 5 views of the cervical spine acquired. COMPARISON: None. FINDINGS: Bones: Vertebral body height and bone mineralization within normal limits. Normal craniovertebral relationships. Degenerative disc disease and arthropathy results in grade 1 retrolisthesis at C4-5 and C5-6. Foraminal stenosis noted in the mid cervical spine predominantly on the right Soft tissues: No prevertebral soft tissue swelling. IMPRESSION: Degenerative changes without fracture or traumatic malalignment Approved by: Garrick Garrett M.D. on 11/28/2022 at 15:54
== END ==
PROVIDERS: Family Provider Family Medicine; PCP Family Medicine; Referring Provider Physical Medicine & Rehabilitation; Visit Provider Physical Medicine & Rehabilitation
DX: M54.2 Cervicalgia (principal); M47.812 Spondylosis without myelopathy or radiculopathy, cervical region
CPT/HCPCS: 72050

== ENCOUNTER → 2022-12-30 07:48 | Outpatient (ROUT) | payer OTHER, SELFPAY ==
[2022-12-30 07:55] LABS: INR 2.9 (0.9-1.3); Prothrombin Time 33.5 SECONDS (10.1-12.7)
== END ==
PROVIDERS: Family Provider Family Medicine; PCP Family Medicine; Visit Provider Family Medicine
DX: Z86.718 Personal history of other venous thrombosis and embolism (principal)
CPT/HCPCS: 85610

== ENCOUNTER → 2023-01-26 07:02 | Outpatient (CLI) | payer OTHER, SELFPAY ==
--- NOTE | 2023-01-26 07:03 | DI.MRI.S_ITS ---
PROCEDURE: MR CERVICAL SPINE WO CON INDICATIONS: Cervical radiculopathy right C7 left C6 TECHNIQUE: Noncontrast sagittal T1 spin echo and T2 fast spin echo, sagittal STIR, foraminal oblique sagittal T2 fast spin echo, and axial gradient echo or T2 fast spin echo through the cervical spine. COMPARISON: [facility], MR, MR CERVICAL SPINE WO CON, 04/28/2018, 16:51. [facility], CR, XR CERVICAL SPINE 4V OR 5V, 11/28/2022, 15:00. FINDINGS: Image quality: This examination is limited by involuntary motion artifact. Alignment and Curvature: There is straightening of the normal cervical lordosis. Minimal anterolisthesis is seen at the C3-C4 level. Bone Marrow: Marrow demonstrates normal overall signal. Spinal Cord: Visualized spinal cord has normal size and signal. No cerebellar tonsillar herniation. Paraspinous Soft Tissues: No paravertebral masses. Prevertebral soft tissues are normal in thickness. C2-C3: Moderate loss of disc height is seen. Loss of disc signal is seen. Moderate disc osteophyte complex is seen, which is eccentric to the left side. There is moderate right-sided and moderate to prominent left-sided facet hypertrophy. There is moderate to severe left-sided and no significant right-sided neural foraminal narrowing. Moderate central canal narrowing is seen. When comparison is made with the prior images, these findings are similar. C3-C4: Moderate loss of disc height is seen. Loss of disc signal is seen. Moderate disc osteophyte complex is seen, which is eccentric to the left. There is moderate right-sided and moderate to prominent left-sided facet hypertrophy. There is severe left-sided and moderate to severe right-sided neural foraminal narrowing. Moderate central canal narrowing is seen. There is associated mass effect upon the ventral spinal cord. When comparison is made with the prior images, these findings are similar. C4-C5: Moderate to severe loss of disc height and disc signal can be seen. At least moderate disc osteophyte complex is seen, which is eccentric to the right. There is a central/right disc osteophyte protrusion. Moderate facet joint hypertrophy is seen. Moderate to severe bilateral neural foraminal narrowing can be seen. Moderate to severe central canal narrowing is seen. There is associated mass effect upon the ventral spinal cord. The degree of central canal narrowing is progressed compared to 2018. C5-C6: Moderate to severe loss of disc height and disc signal can be seen. Reactive marrow endplate changes are seen which are hypointense on T1-weighted imaging and hyperintense on T2 weighted imaging, which is most consistent with edema (Modic type I changes). Moderate to severe disc osteophyte complex is seen, which is eccentric to the right side. Moderate facet joint hypertrophy is seen. Moderate to severe bilateral neural foraminal narrowing can be seen, left worse than right. There is moderate to severe central canal narrowing, with associated ventral cord flattening. The degree of central canal narrowing is mildly progressed compared to 2018. C6-C7: Moderate to severe loss of disc height and disc signal can be seen. At least moderate disc osteophyte complex is seen, with a central disc osteophyte protrusion. Mild to moderate facet hypertrophy is seen. There is moderate to severe bilateral neural foraminal narrowing seen, left worse than right. Moderate to severe central canal narrowing is seen, with associated ventral cord flattening. The degree of central canal narrowing is mildly progressed compared to 2018. C7-T1: Moderate to severe loss of disc height and disc signal can be seen. Reactive marrow endplate changes are seen, which are hyperintense on T1-weighted and T2-weighted imaging and most consistent with fatty metaplasia (Modic type II changes). At least moderate disc osteophyte complex is seen, which is eccentric to the right. There is a central/right disc osteophyte protrusion seen. Moderate facet joint hypertrophy is seen. Moderate to severe bilateral neural foraminal narrowing is seen. Moderate central canal narrowing is seen. There is associated mass effect upon the ventral spinal cord. When comparison is made with the prior images, these findings are similar. IMPRESSION: Multiple levels of significant cervical spine degenerative change are seen, which are mildly progressed compared to 2018 at several levels. Dictated by: Quique Acosta M.D. on 01/26/2023 at 10:38 Approved by: Quique Acosta M.D. on 01/26/2023 at 10:44
== END ==
PROVIDERS: Family Provider Family Medicine; PCP Family Medicine; Referring Provider Physical Medicine & Rehabilitation; Visit Provider Physical Medicine & Rehabilitation
DX: M50.123 Cervical disc disorder at C6-C7 level with radiculopathy (principal); M47.22 Other spondylosis with radiculopathy, cervical region
CPT/HCPCS: 72141

== ENCOUNTER → 2023-02-03 07:41 | Outpatient (ROUT) | payer OTHER, SELFPAY ==
[2023-02-03 07:52] LABS: INR 2.6 (0.9-1.3)
== END ==
PROVIDERS: Family Provider Family Medicine; PCP Family Medicine; Visit Provider Family Medicine
DX: Z86.718 Personal history of other venous thrombosis and embolism (principal)
CPT/HCPCS: 85610

== ENCOUNTER 2023-02-16 08:33 | Outpatient (CLI) | payer OTHER, SELFPAY ==
[2023-02-16] VITALS (9 sets, daily range): BP systolic 95–169; BP diastolic 52–85; PULSE 75–86; RESP 14–20; TEMP 36.5; O2SAT 95–98
--- NOTE | 2023-02-16 08:34 | DI.RAD.S_ITS ---
PROCEDURE: PAIN C/T INTERLAMINAR INJECT INDICATIONS: SPINAL STENOSIS COMPARISON: [facility], MR, MR CERVICAL SPINE WO CON, 01/26/2023, 7:28. [facility], CR, XR CERVICAL SPINE 4V OR 5V, 11/28/2022, 15:00. FINDINGS: Fluoroscopic spot filming was performed to verify placement of a spinal needle at the C6-C7 level, as labeled on the films. Appropriate location of the needle tip was confirmed by injection of iodinated contrast. IMPRESSION: No significant intraprocedural abnormality. Dictated by: Quique Acosta M.D. on 02/16/2023 at 12:34 Approved by: Quique Acosta M.D. on 02/16/2023 at 12:35
[2023-02-16] MEDS: MIDAZOLAM 2 MG/2 ML VIAL IV (09:35)
[2023-02-16] MEDS: MIDAZOLAM 2 MG/2 ML VIAL 1 MG IV (09:44)
[2023-02-16] MEDS: IOPAMIDOL 15 ML VIAL 3 ML INJ (09:48)
[2023-02-16] MEDS: BUPIVACAINE 0.25% (PF) VIAL 2 ML INJ (09:49)
[2023-02-16] MEDS: DEXAMETHASONE 10 MG/ML VIAL 30 MG INJ (09:50)
--- NOTE | 2023-02-16 09:57 | P.PCN_ITS ---
Date/Time/Diagnoses Date of procedure: 02/16/23 Time of procedure: 09:57 Pre-procedure diagnosis: 1. CERVICAL STENOSIS, 2. CERVICAL HNP WITH UPPER EXTREMITY RADICULAR FEATURES Post-procedure diagnosis: same Procedure Notes Procedure: 1. FLUORSCOPICALLY GUIDED CONTRAST CONTROLLED INTERLAMINAR EPIDURAL STEROID INJECTION - C6/7 TL EJ Indications: Chandan is referred by Dr. Douglass for treatment of Cervical HNP with Upper Extremity Paresthesias. Physician: Mello Chiang Total Fluoroscopy time (seconds): 24 Total sedation minutes: 16 Complications: none Procedure in detail & Post-procedure care: FINDINGS Cervical Stenosis due to disc deterioration and nerve root irritation and nerve root irritation DESCRIPTION OF PROCEDURE Fluoroscopically guided, contrast-controlled C6/7 translaminar epidural steroid injection with conscious sedation. Following review of allergy and review of potential side effects and complications, including, but not necessarily limited to, infection, allergic reaction, local tissue breakdown, temporary as well as permanent nerve injury, stroke, paralysis, and possible , the patient indicated that patient understood and agreed to proceed. An informed consent document was signed by the patient, witnessed by a nurse, and placed in the patient's chart. Additionally, other treatment options including modalities, medications, and physical therapy were reviewed with the patient. After review of previous anaesthesic history and IV conscious sedation the patient was deemed safe to proceed with today?s procedure with IV conscious sedation as ASA class II designation. Safety time-out was performed to confirm patient ID, procedure to be performed and site of procedure. IV sedation was accomplished with a combination of 3mg of Versed administered by the RN after DO order, titrated to patient comfort during the course of the procedure while the patient remained responsive to all verbal commands. In the prone position, following sterile prep and drape of the cervical region, the C6/7 translaminar space was identified fluoroscopically. The skin was anesthetized via a 25-gauge 1.5-inch needle with 1% lidocaine solution. At this point, a 25-gauge, 2.5-inch short bevel spinal needle was atraumatically introduced and advanced under fluoroscopic guidance into epidural space at the C6/7 translaminar space. Depth was confirmed on lateral view. Radiological data, including multiple fluoroscopic views of the cervical spine, reveal a spinal needle at the C6/7 translaminar space. Lateral views then show placement of the needle in the epidural space. Subsequent views show contrast material flowing superiorly and inferiorly in the epidural space. DSA fluoroscopy with live contrast injection, once again, confirmed no vascular or intrathecal uptake. At this point, using loss of resistance technique with saline and air, the epidural space was entered. Following negative aspiration, injection of approximately 1.5 cc of Isovue-200 with live fluoroscopy in the AP view confirmed epidural flow in the epidural space without vascular or intrathecal uptake observed. Subsequently, a test dose of 1cc of 1% lidocaine solution was injected and patient was observed for two minutes without signs or symptoms of complications, including abdominal pain, shortness of breath, bilateral upper or lower extremity weakness, nausea and vomiting, prior to steroid injection. At this point, 3cc or 30mg of dexamethasone was then injected without incident. The patient tolerated the procedure well without signs or symptoms of complic ations prior to being transferred to the recovery area for further monitoring, The patient was then transferred to the recovery area where they were observed for an appropriate period of time after the injection. The patient reported a VAS score of 7 prior to the procedure and a post-procedure VAS of 0. POST OP INSTRUCTIONS The patient was provided a Pain Log to continue to record their response to the target-specific procedure prior to follow-up visit with the referring provider. Additionally, specific post-injection care instructions and a contact number to our office were provided if concerns arise regarding possible complications associated with the procedure are suspected.
== END 2023-02-16 10:17 | disposition home or self-care (01) ==
LOC: RAD 08:34
PROVIDERS: Family Provider Family Medicine; PCP Family Medicine; Referring Provider Physical Medicine & Rehabilitation; Visit Provider Physical Medicine & Rehabilitation
DX: M47.812 Spondylosis without myelopathy or radiculopathy, cervical region (principal); M50.123 Cervical disc disorder at C6-C7 level with radiculopathy
CPT/HCPCS: 62321; 99152; J1100; J2250; J3490

== ENCOUNTER → 2023-03-25 08:11 | Outpatient (ROUT) | payer OTHER, SELFPAY ==
[2023-03-25 08:20] LABS: INR 2.5 (0.9-1.3); Prothrombin Time 28.5 SECONDS (10.1-12.7)
== END ==
PROVIDERS: Family Provider Family Medicine; PCP Family Medicine; Visit Provider Family Medicine
DX: Z86.718 Personal history of other venous thrombosis and embolism (principal)
CPT/HCPCS: 85610

== ENCOUNTER → 2023-04-28 07:40 | Outpatient (ROUT) | payer OTHER, SELFPAY ==
[2023-04-28 08:06] LABS: INR 2.2 (0.9-1.3); Prothrombin Time 25.2 SECONDS (10.1-12.7)
== END ==
PROVIDERS: Family Provider Family Medicine; PCP Family Medicine; Visit Provider Family Medicine
DX: Z86.718 Personal history of other venous thrombosis and embolism (principal)
CPT/HCPCS: 85610

== ENCOUNTER → 2023-06-21 13:58 | Outpatient (ROUT) | payer OTHER, SELFPAY ==
[2023-06-21 14:08] LABS: INR 2.7 (0.9-1.3); Prothrombin Time 31.8 SECONDS (10.1-12.7)
== END ==
PROVIDERS: Family Provider Family Medicine; PCP Family Medicine; Visit Provider Family Medicine
DX: D68.51 Activated protein C resistance (principal)
CPT/HCPCS: 85610

== ENCOUNTER → 2023-07-06 10:46 | Outpatient (CLI) | payer OTHER, SELFPAY ==
[2023-07-06 11:17] LABS: Estimated Glomerular Filt Rate > 60 mL/min (>60)
== END ==
PROVIDERS: Family Provider Family Medicine; PCP Family Medicine; Referring Provider Radiology Diagnostic Radiology; Visit Provider Radiology Diagnostic Radiology
DX: R10.9 Unspecified abdominal pain (principal)
CPT/HCPCS: 36415; 82565

== ENCOUNTER → 2023-07-08 06:57 | Outpatient (CLI) | payer OTHER, SELFPAY ==
--- NOTE | 2023-07-08 | DI.CT.S_ITS ---
PROCEDURE: CT ABDOMEN PELVIS W CON INDICATIONS: Unspecified abdominal pain TECHNIQUE: After the administration of oral and IV contrast, axial sections were acquired from the lung bases to the pubic symphysis. Coronal and sagittal reformats were performed. For radiation dose reduction, the following was used: automated exposure control, adjustment of mA and/or kV according to patient size. COMPARISON: [facility], CT, CT IVP, 08/06/2020, 15:02. FINDINGS: Image quality: Excellent. Lung bases: Bibasilar scars and atelectasis. Tiny hiatal hernia Heart: Normal size. Moderate coronary artery atherosclerosis. ABDOMEN: Liver: Normal size. Mild hepatic steatosis. Gallbladder: Unremarkable. Biliary ducts: Unremarkable. Pancreas: Unremarkable. Spleen: Unremarkable. Adrenal Glands: Unremarkable. Kidneys and Ureters: Normal size and symmetrical enhancement. Bilateral low-density renal cortical nodules are present, most likely renal cysts.. Stomach and Bowel: Stomach, small bowel loops, and colon are normal in caliber. Diverticulosis without acute diverticulitis. There is a large amount of stool in colon. Peritoneum: No abnormal intraperitoneal fluid. No free air. Ventral Wall: No hernia. Abdominal Nodes: No retroperitoneal or mesenteric adenopathy by size criteria. Vessels: Aorta and inferior vena cava are normal in size. PELVIS: Pelvic Organs: Prostate is enlarged, as well as seminal vesicles. There are cystic changes in the left seminal vesicle. Bladder: Unremarkable. Pelvic Nodes: No enlarged lymph nodes. Miscellaneous: No inguinal hernias are seen. Bones: Grade 1 anterolisthesis of L5 on S1 secondary to bilateral pars defects. Degenerative changes in lumbar spine. IMPRESSION: 1. There is a large amount of stool in colon. 2. Diverticulosis without diverticulitis. 3. Bilateral renal cysts. 4. Hepatic steatosis. 5. Enlarged prostate. Dictated by: Marilynn Houston M.D. on 07/08/2023 at 13:43 Approved by: Marilynn Houston M.D. on 07/08/2023 at 13:50
== END ==
PROVIDERS: Family Provider Family Medicine; PCP Family Medicine; Referring Provider Family Medicine; Visit Provider Family Medicine
DX: R10.9 Unspecified abdominal pain (principal); K57.90 Diverticulosis of intestine, part unspecified, without perforation or abscess without bleeding; N28.1 Cyst of kidney, acquired; E88.89 Other specified metabolic disorders; N40.0 Benign prostatic hyperplasia without lower urinary tract symptoms
CPT/HCPCS: 74177

== ENCOUNTER → 2023-07-27 15:24 | Outpatient (ROUT) | payer OTHER, SELFPAY ==
[2023-07-27 15:38] LABS: INR 3.3 (0.9-1.3); Prothrombin Time 38.5 SECONDS (10.1-12.7)
== END ==
PROVIDERS: Family Provider Family Medicine; PCP Family Medicine; Visit Provider Family Medicine
DX: D68.59 Other primary thrombophilia (principal); Z86.718 Personal history of other venous thrombosis and embolism
CPT/HCPCS: 85610

== ENCOUNTER → 2023-08-18 08:36 | Outpatient (ROUT) | payer OTHER, SELFPAY ==
[2023-08-18 08:58] LABS: Prothrombin Time 34.5 SECONDS (10.1-12.7)
== END ==
PROVIDERS: Family Provider Family Medicine; PCP Family Medicine; Visit Provider Family Medicine
DX: D68.59 Other primary thrombophilia (principal); Z86.718 Personal history of other venous thrombosis and embolism
CPT/HCPCS: 85610

== ENCOUNTER → 2023-09-16 07:51 | Outpatient (ROUT) | payer OTHER, SELFPAY ==
[2023-09-16 08:04] LABS: INR 3.5 (0.9-1.3); Prothrombin Time 40.9 SECONDS (9.4-12.5)
== END ==
PROVIDERS: Family Provider Family Medicine; PCP Family Medicine; Visit Provider Family Medicine
DX: D68.59 Other primary thrombophilia (principal); Z86.718 Personal history of other venous thrombosis and embolism
CPT/HCPCS: 85610

== ENCOUNTER → 2023-10-25 07:49 | Outpatient (ROUT) | payer OTHER, SELFPAY ==
[2023-10-25 09:53] LABS: INR 2.8 (0.9-1.3); Prothrombin Time 32.8 SECONDS (9.4-12.5)
== END ==
PROVIDERS: Family Provider Family Medicine; PCP Family Medicine; Visit Provider Family Medicine
DX: D68.59 Other primary thrombophilia (principal); Z86.718 Personal history of other venous thrombosis and embolism
CPT/HCPCS: 85610

== ENCOUNTER → 2023-10-27 07:44 | Outpatient (CLI) | payer OTHER, SELFPAY ==
--- NOTE | 2023-10-27 07:48 | DI.CT.S_ITS ---
PROCEDURE: CT CERVICAL SPINE WO CON INDICATIONS: Radiculopathy, cervical region TECHNIQUE: Noncontrast 3 mm thick sections acquired from the skull base to the T4 level. Sagittal and coronal reformats were then constructed. For radiation dose reduction, the following was used: automated exposure control, adjustment of mA and/or kV according to patient size. COMPARISON: None. FINDINGS: Image quality: Excellent. Bones: No fractures or dislocations. Visualized superior ribs are intact. There is reversal normal cervical lordosis. Craniovertebral relationships normal. Degenerative disc disease and arthropathy present in the mid to lower cervical spine. At C3-4, hypertrophic uncovertebral and facet joints results in mild central, moderate right foraminal and severe left foraminal stenosis. At C4-5, C5-6 and C6-7, there is moderate central and bilateral foraminal stenosis associated with hypertrophic arthropathy and posterior disc osteophyte complex. At C7-T1, posterior disc osteophyte complex and hypertrophic arthropathy results in mild central and mild bilateral foraminal stenosis. Soft tissues: Prevertebral soft tissues are normal in thickness. No paravertebral hematomas. No apical pneumothoraces. IMPRESSION: Multilevel degenerative disc disease and arthropathy results in varying degrees of central and foraminal stenosis including moderate central and bilateral foraminal stenosis C4-5, C5-6 and C6-7 Reversal the normal cervical lordosis related to muscle spasm or positioning. Approved by: Garrick Garrett M.D. on 10/27/2023 at 16:47
== END ==
LOC: CT 07:45
PROVIDERS: Family Provider Family Medicine; PCP Family Medicine; Referring Provider Neurological Surgery; Visit Provider Neurological Surgery
DX: M47.22 Other spondylosis with radiculopathy, cervical region (principal); M50.121 Cervical disc disorder at C4-C5 level with radiculopathy; M48.02 Spinal stenosis, cervical region
CPT/HCPCS: 72125

== ENCOUNTER → 2023-10-29 10:28 | Outpatient (ROUT) | payer OTHER, SELFPAY ==
[2023-10-29 10:45] LABS: INR 3.6 (0.9-1.3); Prothrombin Time 41.8 SECONDS (9.4-12.5)
== END ==
PROVIDERS: Family Provider Family Medicine; PCP Family Medicine; Visit Provider Family Medicine
DX: D68.59 Other primary thrombophilia (principal); Z86.718 Personal history of other venous thrombosis and embolism
CPT/HCPCS: 85610

== ENCOUNTER → 2023-11-17 06:39 | Outpatient (CLI) | payer OTHER, SELFPAY ==
--- NOTE | 2023-11-17 06:40 | DI.US.S_ITS ---
PROCEDURE: US ABDOMEN LIMITED INDICATIONS: VENTRAL HERNIA TECHNIQUE: Limited renal-time focused scanning was performed of the area of concern of the epigastric midline region, with image documentation. COMPARISON: [facility], CT, CT ABDOMEN PELVIS W CON, 07/08/2023, 8:26. FINDINGS/IMPRESSION: Limited ultrasound of the area of concern in the region of the epigastric midline was performed; no hernia could be seen by ultrasound. Dictated by: Jose Trujillo M.D. on 11/17/2023 at 8:32 Approved by: Jose Trujillo M.D. on 11/17/2023 at 8:36
== END ==
LOC: US 06:39
PROVIDERS: Family Provider Family Medicine; PCP Family Medicine; Referring Provider Family Medicine; Visit Provider Family Medicine
DX: K43.9 Ventral hernia without obstruction or gangrene (principal)
CPT/HCPCS: 76705

== ENCOUNTER → 2023-11-25 11:51 | Outpatient (ROUT) | payer OTHER, SELFPAY ==
[2023-11-25 12:21] LABS: INR 1.7 (0.9-1.3); Prothrombin Time 19.4 SECONDS (9.4-12.5)
== END ==
PROVIDERS: Family Provider Family Medicine; PCP Family Medicine; Visit Provider Family Medicine
DX: D68.59 Other primary thrombophilia (principal); Z86.718 Personal history of other venous thrombosis and embolism
CPT/HCPCS: 85610

== ENCOUNTER → 2024-01-24 09:27 | Outpatient (CLI) | payer OTHER, SELFPAY ==
--- NOTE | 2024-01-24 09:29 | DI.RAD.S_ITS ---
PROCEDURE: XR HAND RT MIN 3V INDICATIONS: Primary osteoarthritis, unspecified hand TECHNIQUE: 3 views of the hand(s) acquired. COMPARISON: [facility], CR, XR FINGER(S) LT 2VW, 04/24/2016, 8:16. [facility], CR, XR HAND LT MIN 3V, 01/24/2024, 9:31. FINDINGS: Bones: No fractures or dislocations. Carpal bones are normally aligned. No suspicious bony lesions. [id number] degenerative changes at the interphalangeal joints, particularly the 2nd and 3rd DIP joints. Mild degenerative changes at the 1st CMC joint. Soft tissues: No suspicious soft tissue calcifications. IMPRESSION: [id number] osteoarthritis. Dictated by: Ruben Mccray M.D. on 01/24/2024 at 11:49 Approved by: Ruben Mccray M.D. on 01/24/2024 at 11:51
--- NOTE | 2024-01-24 09:29 | DI.RAD.S_ITS ---
PROCEDURE: XR HAND LT MIN 3V INDICATIONS: Primary osteoarthritis, unspecified hand TECHNIQUE: 3 views of the hand(s) acquired. COMPARISON: None. FINDINGS: Bones: No fractures or dislocations. Carpal bones are normally aligned. No suspicious bony lesions. Mild degenerative changes at the interphalangeal joints and 1st CMC joint. No erosion identified. Soft tissues: No suspicious soft tissue calcifications. IMPRESSION: Mild osteoarthritis. Dictated by: Ruben Mccray M.D. on 01/24/2024 at 11:46 Approved by: Ruben Mccray M.D. on 01/24/2024 at 11:49
== END ==
PROVIDERS: Family Provider Family Medicine; PCP Family Medicine; Referring Provider Family Medicine; Visit Provider Family Medicine
DX: M19.042 Primary osteoarthritis, left hand (principal); M19.041 Primary osteoarthritis, right hand
CPT/HCPCS: 73130

== ENCOUNTER → 2024-03-08 07:37 | Outpatient (ROUT) | payer OTHER, SELFPAY ==
[2024-03-08 07:53] LABS: INR 2.8 (0.9-1.3); Prothrombin Time 32.1 SECONDS (9.4-12.5)
== END ==
PROVIDERS: Family Provider Family Medicine; PCP Family Medicine; Visit Provider Family Medicine
DX: D68.59 Other primary thrombophilia (principal); D68.51 Activated protein C resistance
CPT/HCPCS: 85610

== ENCOUNTER → 2024-03-09 13:15 | Outpatient (CLI) | payer OTHER, SELFPAY ==
--- NOTE | 2024-03-09 13:16 | DI.US.S_ITS ---
PROCEDURE: US PERIP VENOUS LOW EXTREM RT INDICATIONS: Right leg swelling TECHNIQUE: Real-time imaging, as well as color and pulse Doppler interrogation, were performed of the lower extremity deep veins from the inguinal ligament to the popliteal fossa, with documentation of the visualized calf veins. COMPARISON: [facility], , [facility] VENOUS LOW EXTREM RT, 02/22/2022, 12:29. FINDINGS: There is nonocclusive thrombus in the popliteal vein and posterior tibial vein. The common femoral and femoral are normally compressible, and free of intraluminal thrombus. Color and pulse Doppler demonstrate normal phasic intraluminal flow. There is normal augmentation response to distal compression maneuver. IMPRESSION: Nonocclusive deep venous thrombosis in the popliteal vein and posterior tibial vein. These findings were discussed with Dr. Batista by the technologist at 2:00 PM on March 09, 2024. Dictated by: Vinita Holland M.D. on 03/10/2024 at 11:51 Approved by: Vinita Holland M.D. on 03/10/2024 at 12:06
== END ==
LOC: US 13:15
PROVIDERS: Family Provider Family Medicine; PCP Family Medicine; Referring Provider Family Medicine; Visit Provider Family Medicine
DX: I82.431 Acute embolism and thrombosis of right popliteal vein (principal); I82.441 Acute embolism and thrombosis of right tibial vein; R22.41 Localized swelling, mass and lump, right lower limb
CPT/HCPCS: 93971

== ENCOUNTER → 2024-03-13 07:53 | Outpatient (ROUT) | payer OTHER, SELFPAY ==
[2024-03-13 08:36] LABS: INR 4.3 (0.9-1.3)
== END ==
PROVIDERS: Family Provider Family Medicine; PCP Family Medicine; Visit Provider Family Medicine
DX: D68.51 Activated protein C resistance (principal); D68.59 Other primary thrombophilia
CPT/HCPCS: 85610

== ENCOUNTER 2024-03-13 15:05 | Emergency (ER) | payer OTHER, SELFPAY ==
[2024-03-13 15:23] VITALS: BP 173/93; PULSE 106; RESP 16; O2SAT 99
--- NOTE | 2024-03-13 15:35 | DI.RAD.S_ITS ---
PROCEDURE: XR CHEST 1V INDICATIONS: chest pain TECHNIQUE: One view of the chest was acquired. COMPARISON: [facility], [place], XR CHEST 2V, 01/17/2022, 13:33. [facility], [place], CHEST 2 VIEW, 12/29/2017, 17:01. FINDINGS: Surgical changes and devices: ACDF hardware. Lungs and pleura: Lungs are clear. No pleural effusions or pneumothorax. Mediastinum: Mediastinal contours appear normal. Heart size is normal. Bones and chest wall: No suspicious bony lesions. Overlying soft tissues appear unremarkable. IMPRESSION: No acute cardiopulmonary abnormality is seen. Dictated by: Wesley Hair M.D. on 03/13/2024 at 16:19 Approved by: Wesley Hair M.D. on 03/13/2024 at 16:19
[2024-03-13 15:55] LABS: Add Manual Diff / Slide Review NO; Basophils Absolute Auto 0 /uL (0-100); Basophils Percent Auto 0.4 % (0-2); Eosinophils Absolute Auto 100 /uL (0-450); Eosinophils Percent Auto 0.9 % (2-4); Hematocrit 39.3 % (41-53); Hemoglobin 13.4 g/dL (13.5-17.5); Lymphocytes Absolute Auto 1400 /uL (1100-4500); Lymphocytes Percent Auto 19.1 % (25-40); Mean Corpuscular HGB Conc 34.1 % (30-36); Mean Corpuscular Hemoglobin 30.6 PG (26-34); Mean Corpuscular Volume 89.7 fL (80-100); Monocytes Absolute Auto 300 /uL (0-900); Neutrophils Absolute Auto 5500 /uL (1500-7000); Neutrophils Percent Auto 75.6 % (50-75); Platelet Count 209 X10^3/uL (150-400); Red Blood Cell Count 4.38 X10^6/uL (4.5-5.9); Red Cell Distribution Width 13.3 % (11.6-14.8); White Blood Cell Count 7.3 X10^3/uL (4.5-11.0)
[2024-03-13 16:12] LABS: INR 4.5 (0.9-1.3); Prothrombin Time 51.9 SECONDS (9.4-12.5)
[2024-03-13 16:15] LABS: PTT Partial Thromboplastin Tim 46 SECONDS (25.1-36.5)
[2024-03-13 16:18] LABS: Alanine Aminotransferase 29 IU/L (<50); Albumin 4.1 g/dL (3.5-5.0); Albumin Globulin Ratio 1.4 (1.0-2.8); Alkaline Phosphatase 83 U/L (38-126); Aspartate Aminotransferase 27 IU/L (17-59); Bilirubin Total 0.6 mg/dL (0.2-1.3); Blood Urea Nitrogen 22 mg/dL (9-20); Calcium 9.1 mg/dL (8.4-10.2); Carbon Dioxide 26 mmol/L (22-32); Chloride 104 mmol/L (98-107); Creatine Kinase 59 U/L (55-170); Estimated Glomerular Filt Rate > 60 mL/min (>60); Glucose 157 mg/dL (80-110); HEMOLYSIS < 15 (0-50); Lipase 131 U/L (23-300); Magnesium 1.9 mg/dL (1.6-2.3); Potassium 3.6 mmol/L (3.4-5.1); Sodium 136 mmol/L (137-145); Total Protein 7.1 g/dL (6.3-8.2)
[2024-03-13 16:30] LABS: Troponin I < 0.012 ng/mL (0.01-0.034)
--- NOTE | 2024-03-13 17:47 | ED_ITS ---
HPI - Recheck/Abnormal Lab/Rx General Chief Complaint: Recheck/Abnormal Lab/Rx Stated Complaint: Rt leg blood clots, DR Referral Time Seen by Provider: 03/13/24 16:35 Source: patient Mode of arrival: Ambulatory History of Present Illness HPI narrative: 68-year-old male with history of factor 5 Leiden, prior pulmonary emboli on warfarin. Patient presents today with outpatient ultrasound that showed DVT, was repeated and showed increased DVT despite being on warfarin. Patient did have his warfarin stopped for an anterior cervical repair. Patient states he did restart his warfarin, he was seen told to increase his warfarin to elevate his INR as he was subtherapeutic. But patient has now been therapeutic with increasing clot burden. Patient states he has had prior pulmonary emboli, he states no chest pain, no shortness a breath, no lightheadedness or syncope. He denies any nausea vomiting or other GI or urinary symptoms. States it does not feel like he has a pulmonary emboli today. He defers CT angio of the chest. His primary care physician Dr. Renner did call myself in the department he had already been contact with Hematology/Oncology who recommends Lovenox 80 mg subcutaneous twice daily for the patient. Prescription has already been sent to [facility] in [place]. Related Data Home Medications Medication Instructions Recorded Confirmed ascorbic acid (vitamin C) 500 mg mg PO 01/16/22 05/05/23 capsule cholecalciferol (vitamin D3) 125 125 mcg PO DAILY 01/16/22 05/05/23 mcg (5,000 unit) capsule multivitamin with minerals 1 tab PO DAILY 01/16/22 05/05/23 (Multiple Vitamin-Minerals tablet) tamsulosin 0.4 mg capsule 0.4 mg PO DAILY 01/16/22 05/05/23 vitamin B complex 1 cap PO DAILY 01/16/22 05/05/23 warfarin 2 mg tablet 2 mg PO DAILY 01/16/22 05/05/23 warfarin 5 mg tablet 5 mg PO DAILY 01/16/22 05/05/23 atorvastatin 10 mg tablet 10 mg PO DAILY 12/02/22 05/05/23 finasteride 5 mg tablet 5 mg PO DAILY 12/02/22 05/05/23 lisinopril 20 1 tab PO DAILY blood pressure 05/05/23 05/05/23 mg-hydrochlorothiazide 12.5 mg tablet pantoprazole 40 mg tablet,delayed 40 mg PO BID 05/05/23 05/05/23 release warfarin 1 mg tablet 1 mg PO DAILY 05/05/23 05/05/23 Allergies Allergy/AdvReac Type Severity Reaction Status Date / Time prednisone AdvReac Intermediate Anxiety Verified 05/05/23 13:39 Review of Systems Review of Systems ROS Unobtainable: All systems reviewed & are unremarkable except as noted in HPI and below Patient History Medical History Degenerative cervical spinal stenosis Facet arthropathy, cervical Cervical disc disorder at C6-C7 level with radiculopathy Factor V Leiden Kidney stones Enlarged prostate Hyperlipemia Hypertension Family History Father Cancer Social History household members: none Smoking Status: Never smoker alcohol intake: current Smoking Status: Never smoker alcohol intake frequency: a few times a week Substance Use Type: does not use Exam Narrative Exam Narrative: GENERAL: Alert and oriented x three, well-appearing male in mild distress. HEENT: Head normocephalic, atraumatic, EOMI, pupils reactive, face symmetric, moist mucous membranes NECK: Supple, full range of motion, patient has healing incision of the right anterior neck clean dry and intact without any warmth erythema or skin changes. CARDIOVASCULAR: Regular rate and rhythm without murmurs, rubs or gallops. RESPIRATORY: Breath sounds equal bilaterally, no wheezes rales or rhonchi. ABDOMEN: Soft, nontender. Normoactive bowel sounds all 4 quadrants. No guarding or rebound, rigidity, no mass : No CVA tenderness EXTREMITIES: Normal range of motion, no clubbing. Neurovascularly intact. Patient has some edema right lower extremity. NEUROLOGICAL: Cranial nerves II through XII grossly intact. Moving all extremities SKIN: Warm, dry, no petechiae, no rashes or lesions. Initial Vital Signs Initial Vital Signs: Vital Signs Pulse Rate 106 H 03/13/24 15:23 Respiratory Rate 16 03/13/24 15:23 Blood Pressure 173/93 H 03/13/24 15:23 Pulse Oximetry 99 03/13/24 15:23 Oxygen Delivery Method Room Air 03/13/24 15:23 Course Orders Ordered: Discontinued Medications Enoxaparin Sodium (Enoxaparin 40 Mg/0.4 Ml Syringe) 80 mg SUBCUT NOW ONE Stop: 03/13/24 18:16 Last Admin: 03/13/24 18:40 Dose: 80 mg Documented By: Vital Signs Vital signs: Vital Signs - 8 hr 03/13/24 15:23 03/13/24 17:54 Pulse Rate 106 H 86 Respiratory Rate 16 16 Blood Pressure 173/93 H 123/71 Pulse Oximetry 99 96 Oxygen Delivery Method Room Air Room Air MDM - Recheck/Abnormal Lab/Rx Lab Data 03/13/24 15:40 03/13/24 15:40 Labs: Lab Results 03/13/24 Range/Units 15:40 WBC 7.3 (4.5-11.0) X10^3/uL RBC 4.38 L (4.5-5.9) X10^6/uL Hgb 13.4 L (13.5-17.5) g/dL Hct 39.3 L (41-53) % MCV 89.7 (80-100) fL MCH 30.6 (26-34) PG MCHC 34.1 (30-36) % RDW 13.3 (11.6-14.8) % Plt Count 209 (150-400) X10^3/uL Neut % (Auto) 75.6 H (50-75) % Lymph % (Auto) 19.1 L (25-40) % Metcalfe % (Auto) 4.0 (3-14) % Eos % (Auto) 0.9 L (2-4) % Baso % (Auto) 0.4 (0-2) % Neut # (Auto) 5500 (2116-1847) /uL Lymph # (Auto) 1400 (6820-6998) /uL Metcalfe # (Auto) 300 (0-900) /uL Eos # (Auto) 100 (0-450) /uL Baso # (Auto) 0 (0-100) /uL PT 51.9 H (9.4-12.5) SECONDS INR 4.5 H (0.9-1.3) APTT 46 H (25.1-36.5) SECONDS Sodium 136 L (137-145) mmol/L Potassium 3.6 (3.4-5.1) mmol/L Chloride 104 (98-107) mmol/L Carbon Dioxide 26 (22-32) mmol/L BUN 22 H (9-20) mg/dL Creatinine 1.00 (0.66-1.25) mg/dL Estimated GFR > 60 (>60) mL/min BUN/Creatinine Ratio 22.0 (6-22) Glucose 157 H (80-110) mg/dL Calcium 9.1 (8.4-10.2) mg/dL Magnesium 1.9 (1.6-2.3) mg/dL Total Bilirubin 0.6 (0.2-1.3) mg/dL AST 27 (17-59) IU/L ALT 29 (<50) IU/L Alkaline Phosphatase 83 (38-126) U/L Total Creatine Kinase 59 (55-170) U/L Troponin I < 0.012 (0.01-0.034) ng/mL Total Protein 7.1 (6.3-8.2) g/dL Albumin 4.1 (3.5-5.0) g/dL Globulin 3.0 (1.7-4.1) g/dL Albumin/Globulin Ratio 1.4 (1.0-2.8) Lipase 131 (23-300) U/L Imaging Data US - DVT: Radiologist's Impression: Close Chest X-Ray (Signed) Wesley Hair - 03/13/24 Vascular Ultrasound (Signed) Quique Acosta - 03/13/24 Vascular Ultrasound (Signed) Vinita Holland - 03/09/24 Hand X-Ray (Signed) Call,Ruben - 01/24/24 Hand X-Ray (Signed) Call,Ruben - 01/24/24 Abdomen Ultrasound (Signed) Jose Trujillo - 11/17/[address] (Signed) Garrett,Garrick - 10/27/23 Abdomen/Pelvis CT (Signed) Marilynn Houston - 07/08/23 Cervical/Thoracic Injection (Signed) Quique Acosta - 02/16/23 Cervical Spine MRI (Signed) Quique Acosta - 01/26/23 Cervical Spine X-Ray (Signed) Garrick Garrett - 11/28/22 Telemetry Strips 02/26/22 Vascular Ultrasound (Signed) Garrett,Garrick - 02/22/22 DI Result 02/05/22 Chest X-Ray (Signed) Quique Acosta - 01/17/22 KUB X-Ray (Signed) Ruben Mccray - 11/25/21 DI Result 06/03/21 DI Result 03/18/21 Abdomen X-Ray (Signed) Rolo Correa - 04/27/19 Foot X-Ray (Signed) Alexus Perez - 06/27/18 Cervical Spine MRI (Signed) Alexus Perez - 04/28/18 Launch?Image [address] [address] Ultrasound Report Signed Patient: Chandan Feliz MR#: [id number] : 1955 Acct:[id number] Age/Sex: 68 / M Date of Service: 03/13/24 Loc: Accession Number: [id number] Procedure: perip venous low extrem rt Ordering Provider: Ok Douglass MD PROCEDURE: [facility] VENOUS LOW EXTREM RT INDICATIONS: Acute embolism and thrombosis of unspecified deep veins of r TECHNIQUE: Real-time imaging, as well as color and pulse Doppler interrogation, were performed of the lower extremity deep veins from the inguinal ligament to the popliteal fossa, with documentation of the visualized calf veins. COMPARISON: [facility], PERIP VENOUS LOW EXTREM RT, 03/09/2024, 13:41. FINDINGS: Nonocclusive deep venous thrombosis can be seen involving the mid to distal femoral vein as well as the popliteal vein. Nonocclusive deep venous thrombosis can also be seen within the posterior tibial veins. IMPRESSION: Multifocal nonocclusive right lower extremity deep venous thrombosis can be seen. The burden of deep venous thrombosis is mildly increased compared to prior. Accordance Note: Concordant preliminary findings given by the adhesive bandage machine operator upon the completion of the examination to Dr. Douglass. Dictated by: Quique Acosta M.D. on 03/13/2024 at 11:50 Approved by: Quique Acosta M.D. on 03/13/2024 at 11:51 Chest x-ray: Radiologist's Impression: [address] [address] XRay Report Signed Patient: Chandan Feliz MR#: [id number] : 1955 Acct:[id number] Age/Sex: 68 / M Date of Service: 03/13/24 Loc: ED Accession Number: [id number] Procedure: XR chest 1V Ordering Provider: Sofia Mason D.O. PROCEDURE: XR CHEST 1V INDICATIONS: chest pain TECHNIQUE: One view of the chest was acquired. COMPARISON: [facility], CR, XR CHEST 2V, 01/17/2022, 13:33. [facility], CR, CHEST 2 VIEW, 12/29/2017, 17:01. FINDINGS: Surgical changes and devices: ACDF hardware. Lungs and pleura: Lungs are clear. No pleural effusions or pneumothorax. Mediastinum: Mediastinal contours appear normal. Heart size is normal. Bones and chest wall: No suspicious bony lesions. Overlying soft tissues appear unremarkable. IMPRESSION: No acute cardiopulmonary abnormality is seen. Dictated by: Wesley Hair M.D. on 03/13/2024 at 16:19 Approved by: Wesley aHir M.D. on 03/13/2024 at 16:19 ECG Data Attestation: I personally reviewed and interpreted this ECG as follows: Interpretation: Sinus tachycardia rate of 104 MI 178 QRS of 94 QTC of 447. Patient has Q 3. MDM Narrative Medical decision making narrative: 68-year-old male with complaint of known DVT had ultrasound of the 6 was repeated today as an outpatient had some increased clot burden in his lower extremity. Patient likely developed in the last couple weeks when he had anterior cervical orthopedic surgery and had week plus of no anticoagulation. Patient primary care physician attempted to reach to start him on Lovenox after talking to hematology/oncology. Patient had presented here. Does have a history of pulmonary emboli we discussed getting CT angio as he was slightly tachycardic upon arrival. He has not been hypoxic, his labs overall do not show any elevation in troponin. Patient defers CT angio and was started on Lovenox here in the department. Prescriptions have already been sent to [facility] in [place] and was verified by myself over the phone. Labs show white count of 7.3, hemoglobin of 13 platelets of 209, INR today is 4.5 recheck was 4.3 earlier this morning, patient was 2.8 on the 5th. Sodium is 136, BUN 22 creatinine and LFTs are otherwise appropriate. Troponins less than 0.012. Chest x-ray showed no acute change. DVT ultrasound showed multifocal nonocclusive right lower extremity DVT, burden of DVT is mildly increased compared to prior. EKG does show sinus tachycardia. Patient's tachycardia resolved here in the department has not been persistent. Discussed risks versus benefits with patient, he prefers to go ahead and hold off on PE study at this time he states does not feel similar to when he had a prior pulmonary emboli he is aware of potential risk. Dr. Douglass called myself with recommended anticoagulation dosing from Hematology, Dr. Rodríguez. Plan for Lovenox 80 mg subQ b.i.d.. Patient was given 1st dose here in the department. Discussed return precautions all questions answered. Patient did give his own injection here states he is done this in the past and feels comfortable with it. Discharge Plan Departure Patient Disposition: Home Clinical Impression: Deep vein thrombosis (DVT) of right lower extremity Activity Restrictions/Additional Instructions: You do have DVT in your right lower extremity, you had increased clot compared from the 6th to 10th. Your heart rate was slightly elevated on around arrival here, your cardiac enzymes were normal but there is always risk for pulmonary emboli. We did not perform a CT angio to rule out a pulmonary emboli today. Continue with Lovenox you received your 1st dose here, you should use 80 mg subcutaneously every 12 hours. Your prescription has been sent to [facility] by Dr. Douglass. Pick this up tonight so you have it available for tomorrow morning. Stop your warfarin. Please return for new chest pain, shortness of breath, lightheadedness or passing out, increasing swelling of extremities or other new or concerning changes. Prescriptions: No Action warfarin 5 mg tablet 5 mg PO DAILY warfarin 2 mg tablet 2 mg PO DAILY tamsulosin 0.4 mg capsule 0.4 mg PO DAILY cholecalciferol (vitamin D3) 125 mcg (5,000 unit) capsule 125 mcg PO DAILY ascorbic acid (vitamin C) 500 mg capsule PO vitamin B complex Capsule 1 cap PO DAILY Multiple Vitamin-Minerals Tablet 1 tab PO DAILY lisinopril-hydrochlorothiazide 20-12.5 mg tablet 1 tab PO DAILY pantoprazole 40 mg tablet,delayed release (DR/EC) 40 mg PO BID warfarin 1 mg tablet 1 mg PO DAILY atorvastatin 10 mg tablet 10 mg PO DAILY Patient Comments: TAKE 1 TABLET BY MOUTH EVERY DAY finasteride 5 mg tablet 5 mg PO DAILY Referrals: Ok Douglass MD [Primary Care Provider] - Stand Alone Forms: Patient Portal/API
[2024-03-13 17:54] VITALS: BP 123/71; PULSE 86; RESP 16; O2SAT 96
[2024-03-13] MEDS: ENOXAPARIN 40 MG/0.4 ML SYRINGE 80 MG SUBCUT (18:40)
[2024-03-13 18:45] VITALS: BP 129/82; PULSE 79; RESP 16; O2SAT 95
--- NOTE | 2024-03-13 21:58 | PC.NURSE ---
2156: Pt calls to confirm that his medication enoxaparin is the same thing as Lovenox. This RN confirmed they are indeed the same medication and education given regarding trade names. Pt verbalized understanding.
== END 2024-03-13 18:47 | disposition home or self-care (01) ==
PROVIDERS: Emergency Provider Emergency Medicine; Family Provider Family Medicine; PCP Family Medicine
DX: I82.411 Acute embolism and thrombosis of right femoral vein (principal); I82.431 Acute embolism and thrombosis of right popliteal vein; I82.441 Acute embolism and thrombosis of right tibial vein; D68.51 Activated protein C resistance; D68.59 Other primary thrombophilia
CPT/HCPCS: 71045; 80053; 82550; 83690; 83735; 84484; 85025; 85610; 85730; 93005; 93010; 93971; 96372; 99281; 99284; J1650

== ENCOUNTER → 2024-03-22 10:06 | Outpatient (ROUT) | payer OTHER, SELFPAY ==
[2024-03-22 11:07] LABS: INR 1.1 (0.9-1.3); Prothrombin Time 12.7 SECONDS (9.4-12.5)
== END ==
PROVIDERS: Family Provider Family Medicine; PCP Family Medicine; Visit Provider Family Medicine
DX: D68.59 Other primary thrombophilia (principal); D68.51 Activated protein C resistance; Z86.718 Personal history of other venous thrombosis and embolism
CPT/HCPCS: 85610

== ENCOUNTER → 2024-04-03 | Outpatient (CLI) | payer OTHER, SELFPAY ==
--- NOTE | 2024-04-03 16:35 | DI.US.S_ITS ---
PROCEDURE: US PERIPH VENOUS LOW EXTREM RT INDICATIONS: Re-evaluation of DVT TECHNIQUE: Real-time imaging, as well as color and pulse Doppler interrogation, were performed of the lower extremity deep veins from the inguinal ligament to the popliteal fossa, with documentation of the visualized calf veins. COMPARISON: [facility], , US PERIP VENOUS LOW EXTREM RT, 03/13/2024, 11:59. FINDINGS: Persistent filling defects within the profundus, superficial femoral vein and popliteal vein, with associated wall thickening. No significant interval progression from prior. IMPRESSION: Suspected chronic post thrombotic change of the right lower extremity, unchanged in burden. Dictated by: Santana Kwong M.D. on 04/07/2024 at 11:04 Approved by: Santana Kwong M.D. on 04/07/2024 at 11:06
== END ==
PROVIDERS: Family Provider Family Medicine; PCP Family Medicine; Referring Provider Family Medicine; Visit Provider Family Medicine
DX: D68.59 Other primary thrombophilia (principal); D68.51 Activated protein C resistance; Z86.718 Personal history of other venous thrombosis and embolism
CPT/HCPCS: 93971

== ENCOUNTER → 2024-05-03 08:48 | Outpatient (ROUT) | payer OTHER, SELFPAY ==
[2024-05-03 08:57] LABS: INR 1.7 (0.9-1.3); Prothrombin Time 19.1 SECONDS (9.4-12.5)
== END ==
PROVIDERS: Family Provider Family Medicine; PCP Family Medicine; Visit Provider Family Medicine
DX: D68.59 Other primary thrombophilia (principal); Z86.718 Personal history of other venous thrombosis and embolism
CPT/HCPCS: 85610

== ENCOUNTER → 2024-05-10 07:39 | Outpatient (CLI) | payer OTHER, SELFPAY ==
--- NOTE | 2024-05-10 | DI.RAD.S_ITS ---
PROCEDURE: XR CERVICAL SPINE 2V OR 3V INDICATIONS: PAIN S/P ACDF TECHNIQUE: 4 view(s) of the cervical spine were acquired. COMPARISON: [facility], , XR CERVICAL SPINE 4V OR 5V, 11/28/2022, 15:00. FINDINGS: Bones: No fractures or dislocations to the C7 level. Trace anterolisthesis, C3-4 and grade 1 retrolisthesis C4-5, both stable. Severe disc height loss C4-5. Anterior vertebral body fusion C5 through C7 with disc spacers placed. The hardware appears intact. The lateral masses of C1 appear intact on the odontoid view. No suspicious bony lesions. Soft tissues: No prevertebral soft tissue swelling. Surgical clips in the low anterior neck soft tissues IMPRESSION: Intact anterior cervical spine fusion C5 through C7. Stable spondylolisthesis C3-4 and C4-5. Dictated by: Lissy Parish M.D. on 05/10/2024 at 13:22 Approved by: Lissy Parish M.D. on 05/10/2024 at 13:25
--- NOTE | 2024-05-10 | DI.RAD.S_ITS ---
PROCEDURE: XR SHOULDER RT MIN 2V INDICATIONS: PAIN TECHNIQUE: Three views of the shoulder were acquired. COMPARISON: None. FINDINGS: Bones: No fractures or dislocations. Mild degenerative changes at the glenohumeral joint. There is an intact surgical staple along the anterior aspect of the glenoid fossa. No suspicious bony lesions. Visualized ribs appear intact. Soft tissues: Faint rounded collection calcifications inferior to the coracoid process, potentially intra-articular loose bodies. Calcification in the expected location of the proximal biceps tendon. Overlying soft tissues are otherwise normal. IMPRESSION: Glenohumeral joint degeneration. Intact surgical clip in the glenoid fossa. Possible biceps tendon calcification. Possible intra-articular partially calcified loose body in the subscapular space. Dictated by: Lissy Parish M.D. on 05/10/2024 at 13:25 Approved by: Lissy Parish M.D. on 05/10/2024 at 13:28
--- NOTE | 2024-05-10 07:40 | DI.MRI.S_ITS ---
PROCEDURE: MR CERVICAL SPINE WO CON INDICATIONS: SPONDYLOSIS,RADICULOPATHY CERVICAL REGION TECHNIQUE: Noncontrast sagittal T1 spin echo and T2 fast spin echo, sagittal STIR, foraminal oblique sagittal T2 fast spin echo, and axial gradient echo or T2 fast spin echo through the cervical spine. COMPARISON: [facility], MR, MR CERVICAL SPINE WO CON, 01/26/2023, 7:28. FINDINGS: Image quality: Excellent. Alignment and Curvature: Straightening of the normal cervical lordosis. Mild anterolisthesis of C3 on C4. Mild retrolisthesis of C4 on C5. Bone Marrow: C5 through C7 ACDF. Marrow demonstrates normal overall signal. Spinal Cord: Visualized spinal cord has normal size and signal. No cerebellar tonsillar herniation. Paraspinous Soft Tissues: No paravertebral masses. Prevertebral soft tissues are normal in thickness. C2-C3: Disc desiccation and mild disc height loss. Posterior disc osteophyte complex. Mild central canal stenosis. Facet and uncovertebral arthropathy. Moderate to severe left and no significant neural foraminal stenosis C3-C4: Disc desiccation and height loss. Posterior disc osteophyte complex. Stable moderate central canal stenosis. Facet and uncovertebral arthropathy. Severe left and moderate to severe right neural foraminal stenosis is stable. C4-C5: Disc desiccation and severe disc height loss. Posterior disc osteophyte complex. Moderate central canal stenosis is stable. Facet and uncovertebral arthropathy. Stable moderate to severe bilateral neural foraminal stenosis. C5-C6: Postoperative changes. Facet and uncovertebral arthropathy. Mild to moderate residual central canal stenosis. Moderate to severe bilateral neural foraminal stenosis. C6-C7: Postoperative changes. Facet and uncovertebral arthropathy. Mild to moderate residual central canal stenosis. Moderate to severe bilateral neural foraminal stenosis. C7-T1: Disc desiccation and severe disc height loss. Posterior disc osteophyte complex. Moderate central canal stenosis. Facet and uncovertebral arthropathy. Moderate to severe bilateral neural foraminal stenosis. IMPRESSION: Multilevel degenerative changes of the cervical spine as described above. Interval C5 through C7 ACDF with improvement in central canal stenosis at these levels. Degenerative changes are otherwise similar appearance compared to prior. Multilevel high-grade neural foraminal stenosis is redemonstrated. Dictated by: Wesley Hair M.D. on 05/10/2024 at 15:28 Approved by: Wesley Hair M.D. on 05/10/2024 at 15:35
== END ==
PROVIDERS: Family Provider Family Medicine; PCP Family Medicine; Referring Provider Neurological Surgery; Visit Provider Neurological Surgery
DX: M47.22 Other spondylosis with radiculopathy, cervical region (principal); M48.02 Spinal stenosis, cervical region; M43.12 Spondylolisthesis, cervical region; M19.011 Primary osteoarthritis, right shoulder; M25.511 Pain in right shoulder; Z98.1 Arthrodesis status
CPT/HCPCS: 72040; 72141; 73030

== ENCOUNTER → 2024-06-14 09:30 | Outpatient (ROUT) | payer OTHER, SELFPAY ==
[2024-06-14 09:38] LABS: INR 3.2 (0.9-1.3); Prothrombin Time 36.8 SECONDS (9.4-12.5)
== END ==
PROVIDERS: Family Provider Family Medicine; PCP Family Medicine; Visit Provider Family Medicine
DX: D68.59 Other primary thrombophilia (principal); Z86.718 Personal history of other venous thrombosis and embolism
CPT/HCPCS: 85610

== ENCOUNTER → 2024-07-07 07:46 | Outpatient (ROUT) | payer OTHER, SELFPAY ==
[2024-07-07 08:00] LABS: INR 2.3 (0.9-1.3); Prothrombin Time 27.2 SECONDS (9.4-12.5)
== END ==
PROVIDERS: Family Provider Family Medicine; PCP Family Medicine; Visit Provider Family Medicine
DX: D68.59 Other primary thrombophilia (principal); D68.51 Activated protein C resistance
CPT/HCPCS: 85610

== ENCOUNTER → 2024-08-10 07:52 | Outpatient (ROUT) | payer OTHER, SELFPAY ==
[2024-08-10 07:58] LABS: INR 1.5 (0.9-1.3); Prothrombin Time 16.9 SECONDS (9.4-12.5)
== END ==
PROVIDERS: Family Provider Family Medicine; PCP Family Medicine; Visit Provider Family Medicine
DX: D68.59 Other primary thrombophilia (principal); Z86.718 Personal history of other venous thrombosis and embolism
CPT/HCPCS: 85610

== ENCOUNTER → 2024-08-29 07:00 | Outpatient (CLI) | payer OTHER, SELFPAY ==
--- NOTE | 2024-08-29 07:02 | DI.RAD.S_ITS ---
PROCEDURE: XR HIP W PEL IF DONE SHAHEEN MIN 4V INDICATIONS: bilateral hip pain TECHNIQUE: AP pelvis with lateral view(s) of of both hips COMPARISON: None. FINDINGS: Bones: CAM configuration both femoral head neck junctions predispose to femoral acetabular impingement. SI and hip joints: Severe left hip degeneration noted. The right hip and both SI joints are normal. Moderate L5-S1 degenerative disc disease appreciated. Soft tissues: Moderate calcification seen in the expected location of the prostate. IMPRESSION: Severe left hip degeneration. Moderate prosthetic calcification Dictated by: Jc Pena M.D. on 08/29/2024 at 10:06 Approved by: Jc Pena M.D. on 08/29/2024 at 10:08
== END ==
PROVIDERS: Family Provider Family Medicine; PCP Family Medicine; Referring Provider Family Medicine; Visit Provider Family Medicine
DX: M51.379 Other intervertebral disc degeneration, lumbosacral region without mention of lumbar back pain or lower extremity pain (principal); M16.12 Unilateral primary osteoarthritis, left hip; M25.552 Pain in left hip; M25.551 Pain in right hip; N42.9 Disorder of prostate, unspecified
CPT/HCPCS: 73522

== ENCOUNTER → 2024-09-05 07:56 | Outpatient (ROUT) | payer OTHER, SELFPAY ==
[2024-09-05 08:05] LABS: INR 1.9 (0.9-1.3)
== END ==
PROVIDERS: Family Provider Family Medicine; PCP Family Medicine; Visit Provider Family Medicine
DX: D68.59 Other primary thrombophilia (principal); D68.51 Activated protein C resistance
CPT/HCPCS: 85610

== ENCOUNTER → 2024-10-09 08:34 | Outpatient (ROUT) | payer OTHER, SELFPAY ==
[2024-10-09 08:51] LABS: INR 2.3 (0.9-1.3)
== END ==
PROVIDERS: Family Provider Family Medicine; PCP Family Medicine; Visit Provider Family Medicine
DX: D68.59 Other primary thrombophilia (principal); D68.51 Activated protein C resistance
CPT/HCPCS: 85610

== ENCOUNTER → 2024-10-13 12:01 | Outpatient (CLI) | payer OTHER, SELFPAY ==
--- NOTE | 2024-10-13 12:03 | DI.RAD.S_ITS ---
PROCEDURE: XR LUMBAR SPINE MIN 4V INDICATIONS: BACK PAIN TECHNIQUE: 5 views of the lumbar spine were acquired, including bilateral oblique views. COMPARISON: [facility], CT, CT ABDOMEN PELVIS W CON, 07/08/2023, 8:26. FINDINGS: Bones: 5 nonrib-bearing vertebrae are present. Anterolisthesis of L5 on S1 measuring 0.9 cm, not significantly changed. There is disc space height loss and prominent vertebral body osteophytes. No vertebral body compression fractures. No suspicious bony lesions. Soft tissues: Overlying bowel gas pattern is normal. No suspicious soft tissue calcifications. Oblique images: Bilateral L5 pars defect better seen on prior CT. IMPRESSION: Grade 1 anterolisthesis of L5 on S1. Bilateral L5 pars defect. Dictated by: Ruben Mccray M.D. on 10/13/2024 at 13:48 Approved by: Ruben Mccray M.D. on 10/13/2024 at 13:51
== END ==
PROVIDERS: Family Provider Family Medicine; PCP Family Medicine; Referring Provider Physical Medicine & Rehabilitation; Visit Provider Physical Medicine & Rehabilitation
DX: M54.50 Low back pain, unspecified (principal); M54.9 Dorsalgia, unspecified; M43.17 Spondylolisthesis, lumbosacral region
CPT/HCPCS: 72110

== ENCOUNTER → 2024-11-03 07:46 | Outpatient (ROUT) | payer OTHER, SELFPAY ==
[2024-11-03 07:55] LABS: INR 2.6 (0.9-1.3); Prothrombin Time 28.5 SECONDS (9.4-12.5)
== END ==
PROVIDERS: Family Provider Family Medicine; PCP Family Medicine; Visit Provider Family Medicine
DX: D68.59 Other primary thrombophilia (principal); D68.51 Activated protein C resistance
CPT/HCPCS: 85610

== ENCOUNTER → 2024-11-07 09:28 | Outpatient (CLI) | payer OTHER, SELFPAY | PROVIDERS: Family Provider Family Medicine; PCP Family Medicine; Visit Provider Urology | DX: R39.9 Unspecified symptoms and signs involving the genitourinary system (principal) | CPT/HCPCS: 51798; 81002; 87086; 99213 ==

== ENCOUNTER → 2024-12-05 11:00 | Outpatient (ROUT) | payer OTHER, SELFPAY ==
[2024-12-05 11:27] LABS: Prothrombin Time 22.7 SECONDS (9.4-12.5)
== END ==
PROVIDERS: Family Provider Family Medicine; PCP Family Medicine; Visit Provider Family Medicine
DX: D68.59 Other primary thrombophilia (principal); D68.51 Activated protein C resistance
CPT/HCPCS: 85610

== ENCOUNTER → 2025-01-10 | Outpatient (CLI) | payer OTHER, SELFPAY ==
--- NOTE | 2025-01-10 07:33 | EKG_ITS ---
[address] [address] [address], [place] [address] Test Date: 2025-01-10 Pat Name: Chandan Feliz Department: [facility] Room: Gender: Male Configuration Management Consultant: : 1955 Requested By: Order Number: [id number] Reading MD: Kiko Bae Measurements Intervals [place] Rate: 75 P: 31 [place]: 180 QRS: -18 QRSD: 106 T: 68 QT: 380 QTc: 424 Interpretive Statements Normal sinus rhythm Electronically Signed On 01-16-2025 20:07:39 PDT by Kiko Bae
[2025-01-10 07:51] LABS: Add Manual Diff / Slide Review NO; Basophils Absolute Auto 0 /uL (0-100); Basophils Percent Auto 0.4 % (0-2); Eosinophils Absolute Auto 100 /uL (0-450); Eosinophils Percent Auto 2.3 % (2-4); Hematocrit 42.5 % (41-53); Hemoglobin 14.6 g/dL (13.5-17.5); Lymphocytes Absolute Auto 1700 /uL (1100-4500); Lymphocytes Percent Auto 29.6 % (25-40); Mean Corpuscular HGB Conc 34.4 % (30-36); Mean Corpuscular Volume 90.1 fL (80-100); Monocytes Absolute Auto 300 /uL (0-900); Monocytes Percent Auto 5.6 % (3-14); Neutrophils Absolute Auto 3600 /uL (1500-7000); Neutrophils Percent Auto 62.1 % (50-75); Platelet Count 189 X10^3/uL (150-400); Red Blood Cell Count 4.72 X10^6/uL (4.5-5.9); Red Cell Distribution Width 14.5 % (11.6-14.8); White Blood Cell Count 5.8 X10^3/uL (4.5-11.0)
[2025-01-10 08:02] LABS: Hemoglobin A1C% w Est Avg Glu 5.1 % (4.0-6.0)
[2025-01-10 08:05] LABS: INR 1.9 (0.9-1.3); Prothrombin Time 20.8 SECONDS (9.4-12.5)
[2025-01-10 08:09] LABS: Blood Urea Nitrogen 21 mg/dL (9-20); Calcium 9.8 mg/dL (8.4-10.2); Carbon Dioxide 24 mmol/L (22-32); Chloride 103 mmol/L (98-107); Estimated Glomerular Filt Rate > 60 mL/min (>60); Glucose 103 mg/dL (80-110); HEMOLYSIS < 15 (0-50); Potassium 3.8 mmol/L (3.4-5.1); Sodium 137 mmol/L (137-145)
[2025-01-10 10:27] LABS: Appearance Urine UA CLEAR; Bilirubin Urine UA NEGATIVE (NEGATIVE); Color Urine UA YELLOW; Glucose Urine UA NEGATIVE (Negative); Ketones Urine UA NEGATIVE (NEGATIVE); Leukocyte Esterase Urine UA TRACE (NEGATIVE); Nitrite Urine UA NEGATIVE (Negative); Occult Blood Urine UA NEGATIVE (Negative); Protein Urine UA NEGATIVE (Negative); Specific Gravity Urine UA 1.015 (1.000-1.035); Urobilinogen Urine UA 0.2 E.U./dL (0.2)
[2025-01-10 10:33] LABS: Urine Volume 10mL (spun)
[2025-01-10 10:37] LABS: Bacteria Urine None Seen; Culture Indicated Urine Cult Not Indicated; RBC Urine None Seen (0-5/HPF); Squamous Epithelial Cell Urine None Seen (0-5/HPF); WBC Urine 0-1/HPF (0-5/HPF)
== END ==
PROVIDERS: Family Provider Family Medicine; PCP Family Medicine; Referring Provider Orthopaedic Surgery; Visit Provider Orthopaedic Surgery
DX: Z01.818 Encounter for other preprocedural examination (principal); Z01.812 Encounter for preprocedural laboratory examination; R73.9 Hyperglycemia, unspecified; N39.0 Urinary tract infection, site not specified; D68.59 Other primary thrombophilia; D68.51 Activated protein C resistance
CPT/HCPCS: 36415; 80048; 81001; 83036; 85025; 85610; 93005

== ENCOUNTER → 2025-02-19 08:54 | Outpatient (ROUT) | payer OTHER, SELFPAY ==
[2025-02-19 09:10] LABS: INR 1.6 (0.9-1.3); Prothrombin Time 17.9 SECONDS (9.4-12.5)
== END ==
LOC: LAB 08:55
PROVIDERS: Family Provider Family Medicine; PCP Family Medicine; Visit Provider Family Medicine
DX: D68.59 Other primary thrombophilia (principal); D68.51 Activated protein C resistance
CPT/HCPCS: 85610

== ENCOUNTER → 2025-02-27 07:21 | Outpatient (CLI) | payer OTHER, SELFPAY ==
[2025-02-27 07:52] LABS: Add Manual Diff / Slide Review NO; Basophils Absolute Auto 0 /uL (0-100); Basophils Percent Auto 0.5 % (0-2); Eosinophils Absolute Auto 100 /uL (0-450); Eosinophils Percent Auto 2.1 % (2-4); Hematocrit 42.6 % (41-53); Hemoglobin 14.5 g/dL (13.5-17.5); Lymphocytes Absolute Auto 2000 /uL (1100-4500); Lymphocytes Percent Auto 29.6 % (25-40); Mean Corpuscular HGB Conc 34.1 % (30-36); Mean Corpuscular Hemoglobin 31.1 PG (26-34); Mean Corpuscular Volume 91.4 fL (80-100); Monocytes Absolute Auto 400 /uL (0-900); Monocytes Percent Auto 5.6 % (3-14); Neutrophils Absolute Auto 4200 /uL (1500-7000); Neutrophils Percent Auto 62.2 % (50-75); Platelet Count 183 X10^3/uL (150-400); Red Blood Cell Count 4.66 X10^6/uL (4.5-5.9); Red Cell Distribution Width 13.7 % (11.6-14.8); White Blood Cell Count 6.7 X10^3/uL (4.5-11.0)
[2025-02-27 08:11] LABS: Albumin 4.3 g/dL (3.5-5.0); BUN Creatinine Ratio 20.6 (6-22); Blood Urea Nitrogen 20 mg/dL (9-20); Calcium 9.8 mg/dL (8.4-10.2); Carbon Dioxide 26 mmol/L (22-32); Chloride 104 mmol/L (98-107); Estimated Glomerular Filt Rate > 60 mL/min (>60); Glucose 101 mg/dL (70-99); HEMOLYSIS < 15 (0-50); Potassium 3.9 mmol/L (3.4-5.1); Sodium 138 mmol/L (137-145)
[2025-02-27 08:20] LABS: Prealbumin 22.6 mg/dL (17.6-36.0)
[2025-02-27 08:28] LABS: Vitamin D 25 Hydroxy (D3) 97.6 ng/mL (30.0-100.0)
== END ==
PROVIDERS: Family Provider Family Medicine; PCP Family Medicine; Referring Provider Orthopaedic Surgery Adult Reconstructive Orthopaedic Surgery; Visit Provider Orthopaedic Surgery Adult Reconstructive Orthopaedic Surgery
DX: M16.12 Unilateral primary osteoarthritis, left hip (principal); Z78.9 Other specified health status
CPT/HCPCS: 36415; 80048; 82040; 82306; 83036; 84134; 85025

== ENCOUNTER → 2025-03-07 11:41 | Outpatient (ROUT) | payer OTHER, SELFPAY ==
[2025-03-07 11:54] LABS: INR 1.6 (0.9-1.3)
== END ==
PROVIDERS: Family Provider Family Medicine; PCP Family Medicine; Visit Provider Family Medicine
DX: D68.59 Other primary thrombophilia (principal); D68.51 Activated protein C resistance
CPT/HCPCS: 85610

== ENCOUNTER → 2025-04-04 07:58 | Outpatient (ROUT) | payer OTHER, SELFPAY ==
[2025-04-04 08:18] LABS: INR 1.4 (0.9-1.3); Prothrombin Time 15.5 SECONDS (9.4-12.5)
== END ==
PROVIDERS: Family Provider Family Medicine; PCP Family Medicine; Visit Provider Family Medicine
DX: D68.59 Other primary thrombophilia (principal); D68.51 Activated protein C resistance
CPT/HCPCS: 85610

== ENCOUNTER → 2025-04-27 07:37 | Outpatient (ROUT) | payer OTHER, SELFPAY ==
[2025-04-27 07:45] LABS: INR 2.0 (0.9-1.3); Prothrombin Time 22.6 SECONDS (9.4-12.5)
== END ==
PROVIDERS: PCP Family Medicine; Visit Provider Family Medicine
DX: D68.59 Other primary thrombophilia (principal); D68.51 Activated protein C resistance
CPT/HCPCS: 85610

== ENCOUNTER → 2025-05-07 08:45 | Outpatient (CLI) | payer OTHER, SELFPAY | PROVIDERS: PCP Family Medicine; Visit Provider Urology | DX: N40.1 Benign prostatic hyperplasia with lower urinary tract symptoms (principal) | CPT/HCPCS: 87086 ==

== ENCOUNTER 2025-05-14 08:07 | Day surgery (SDC) | payer OTHER, SELFPAY ==
[2025-05-08 08:31] VITALS: BMI 32.3
--- NOTE | 2025-05-13 23:12 | DI.RAD.S_ITS ---
PROCEDURE: XR HIP W PEL IF DONE LT 2V INDICATIONS: RADHA TECHNIQUE: Fluoroscopic guidance utilized for a left total hip arthroplasty COMPARISON: None. FINDINGS: Fluoroscopic images submitted for a left total hip arthroplasty. Please see operative note for further discussion. IMPRESSION: Fluoroscopic guidance. Dictated by: Santana Kwong M.D. on 05/14/2025 at 16:21 Approved by: Santana Kwong M.D. on 05/14/2025 at 16:21
[2025-05-14] VITALS (14 sets, daily range): BP systolic 125–168; BP diastolic 62–81; PULSE 8–97; RESP 10–28; TEMP 35.8–36.9; O2SAT 91–98; BMI 32.3
--- NOTE | 2025-05-14 08:54 | SUR.PREOP ---
Verified telephone order for type and screen from Dr Yanes.
[2025-05-14] MEDS: ACETAMINOPHEN 325 MG TABLET 975 MG PO (09:39)
[2025-05-14] MEDS: LACTATED RINGERS 1,000 ML 42 ML IV ×2 (09:40→14:34)
--- NOTE | 2025-05-14 11:50 | PM.PREOP ---
Pre-operative Note Interval Note History & Physical reviewed/Exam performed by Physician: Yes Changes to H&P: No
[2025-05-14] MEDS: CEFAZOLIN 2 GM/100 ML PREMIX 100 ML IV (12:40)
--- NOTE | 2025-05-14 13:09 | SUR.OPER ---
Supine on padded [place] table with bilateral legs secured in padded positioning boots and suspended in positioning spars, operative leg in traction per surgeon. Head on one pillow. Arms secured on padded armboard <90 degrees abduction. Padded perineal post in place per surgeon.
[2025-05-14] MEDS: TRANEXAMIC ACID 1,000 MG VIAL 1000 MG INJ (13:19)
[2025-05-14] MEDS: BUPIVACAINE 0.5% W/ EPI (PF) 30 ML VIAL 60 ML INJ (13:22)
[2025-05-14] MEDS: KETOROLAC 30 MG/ML VIAL IM (13:24)
--- NOTE | 2025-05-14 14:37 | P.OP_ITS ---
Operative Date/Time/Diagnoses Date of procedure: 05/14/25 Time of procedure: 12:00 Pre-op diagnosis: Left hip osteoarthritis Post-op diagnosis: same Procedure & Clinicians Procedure: Left total hip arthroplasty Same procedure(s) as scheduled: Yes Surgeon: Garrick Lee Ginner: [place] Anesthesia Type: Spinal, Sedation and Local Operative Notes Findings: Severe left hip arthritis Closure Type: primary Applied: implant(s) Estimated Blood Loss (mL): 300 Procedure in detail: 1. Left Uncemented Direct Anterior Sammy Total Hip Arthroplasty (66156) 2. Computer-Assisted Musculoskeletal Surgical Navigational Orthopedic Procedure Using Fluoroscopic Image Guidance (0054T) Implants: * G7 PPS size 60 cup? * [Z1] femoral stem size 9 high offset? * 40 mm +3.5 ceramic femoral head? Procedure Summary: This 69-year-old male patient has a past medical history most significant for factor 5 Leiden. He has had prior VTE. He is on chronic warfarin therapy. We utilized a Lovenox bridge prior to surgery today and held Lovenox for 24 hours preoperatively. We did not administer intravenous tranexamic acid, instead administering tranexamic acid intra-articularly at the conclusion of the procedure. He will have a Lovenox bridge back to warfarin postoperatively and we have placed a incisional wound VAC to limit the risk of postoperative bleeding. Intraoperatively I was able to achieve adequate femoral exposure without releasing the conjoined tendon. I initially trialed with a +0 head and had good stability however when I placed that definitive head he had instability past 100? of external rotation. I therefore removed and wasted that ceramic head and upsized to a +3.5 head. This did appear to slightly lengthened him however it resolved the instability that had occurred with the +0 head. Procedure in Detail: This patient was seen preoperatively and evaluated for hip pain which was refractory to numerous nonoperative treatment modalities. Their hip pain correlated with radiographic changes demonstrating significant degeneration in the hip joint. The risks and benefits of continued nonoperative management versus operative management were discussed at length and all of the patient?s questions were answered. Additional educational materials providing further details beyond our discussion in clinic were provided via a publicly available patient education video which included the incidence of medical complications associated with total hip arthroplasty, reasons for revision following total hip arthroplasty, and patient satisfaction rates following total hip arthroplasty. With this understanding of the risks inherent to the procedure, the patient elected to move forward with operative management. Following preoperative optimization, the patient was scheduled for surgery. The patient was met in the preoperative holding area the day of the procedure and all questions were answered. The patient?s nares were swabbed in order to decolonize them from MRSA. Informed consent was signed and the left limb was marked with indelible ink.? The patient was brought back to the operating room where anesthesia was induced. The patient was transferred to the [place] table and all bony prominences were padded. The operative site was prepped and draped in the usual sterile fashion. Prior to incision, tranexamic acid and cefazolin were administered. Operative templating images were displayed demonstrating the anticipated implant sizes and correct operative extremity. A timeout procedure was performed verifying the patient?s identity, medical comorbidities, allergies, relevant medications, anesthesia type and the surgical plan. All present were in agreement. The assistance of a physician retail store assistant was required for positioning, room setup, soft tissue retraction and wound closure. Without this assistance, the procedure would have been significantly more challenging and time consuming.?? A direct anterior approach to the hip was utilized. This was performed with a longitudinal incision through a Heuter interval. The incision was planned 2 cm distal and 2 cm lateral to the ASIS extending towards the lateral patella, in line with the muscle body of the TFL. Following incision, the subcutaneous tissue was dissected while taking care to avoid injury to the lateral femoral cutaneous nerve. The fascia overlying the TFL was identified by dissecting off the overlying fat and identifying perforating vessels to the TFL. The TFL fascia was incised and dissected away from the medial border of the TFL. A retractor was placed over the superior femoral neck between the abductors and the hip capsule and used to reflect the TFL laterally. A [place] self-retainer was then placed in the distal aspect of the wound between the TFL and the rectus femoris. This was tensioned to open up the direct anterior interval and the lateral circumflex vessels were identified and coagulated using electrocautery. The floor of the TFL fascia was incised, exposing the pericapsular fat overlying the hip capsule. A second cobra retractor was placed on the inferior femoral neck. A retractor was placed on the anterior wall of the acetabulum and used to tension the reflected head of rectus femoris, which was then released in order to limit soft tissue tension. A capsulotomy was made in the midline of the anterior hip capsule in line with the femoral neck ending at the vastus tubercle. The anterior retractor was removed as soon as the capsulotomy was completed in order to limit the amount of time that a soft tissue retractor remained on the anterior wall and limit tension on the femoral nerve. Tag stitches were placed in the superior and inferior leaflets of the hip capsule. An Margarito soft tissue retractor was introduced over the tag stitches and tensioned in the interval between the rectus femoris and the TFL in order to r etract and protect those muscles. The cobra retractors were replaced intracapsularly, with one over the superior neck in the pocket created by the base of the greater trochanter and the other on the femoral head. The capsulotomy was extended laterally to the base of the greater trochanter and medially to the lesser trochanter. This required externally rotating the hip. Once the lesser trochanter had been identified, a neck cut was planned according to measurements from preoperative templating. A ruler was cut at the length measured between the superior aspect of the lesser trochanter and the collar of the prosthesis. This line was extended towards the inferior aspect of the lateral cobra retractor to plan a cut which would leave minimal residual femoral neck laterally. The neck was cut at 60 degrees of external rotation along that line. A second cut was performed to remove a large napkin ring and facilitate head extraction. The napkin ring cut and femoral head were removed.?? A broad anterior wall retractor was placed between the labrum and the anterior capsule so that the anterior capsule would prevent capturing and pinching the femoral nerve anteriorly. An additional retractor was placed on the posterior wall. External rotation and traction were applied through the [place] table so that the cut surface of the femoral neck would not restrict access to the acetabulum. The labrum was excised sharply and the pulvinar was excised with electrocautery to limit bleeding from branches of the obturator artery. Acetabular reamers were selected based on preoperative templating and neeta surements of the excised femoral head. These were introduced into the acetabulum. Fluoroscopy was utilized to replicate a standing AP pelvis radiograph by centering over the pelvis, rotating until there was appropriate symmetry between the obturator foramen, and introducing caudal tilt to match the position of the pubic symphysis relative to the sacrococcygeal junction according to the patient?s anatomy. Once satisfied with the reaming depth corresponding to the preoperative template and the pinch fit between the columns, an appropriate sized acetabular cup was selected which would provide 1 mm of press-fit. This cup was introduced and manipulated until appropriate abduction and anteversion angles were obtained with careful attention to appropriate abduction and anteversion angles as evaluated by the position of the cup relative to the anterior and posterior gutierrez of the acetabulum and the AP fluoroscopy which recreated the patient?s standing radiograph. The cup was impacted into place. Peripheral osteophytes were removed. The acetabular liner was then placed with care to ensure locking of the locking mechanism. Attention was then turned to the femur. All retractors were removed, traction was released, a retractor was placed in the interval between the hip capsule and the gluteus minimus. The lateral capsule was released using electrocautery. Traction was released and a [place] hook was placed posteriorly around the proximal femur at the level of the vastus ridge. The table height was lowered in order to restrict the tension on the anterior structures during hip hyperextension to limit the risk of femoral nerve palsy. With traction off and the hip at 90 degrees of external rotation, the hip was hyperextended and adducted while manually elevating the femur away from the acetabulum with the [place] hook to avoid hooking the greater trochanter on the pelvis. An asymmetric retractor was placed over the calcar and a broad double-pronged retractor was placed over the greater trochanter. The tag stitch capturing the lateral leaflet of the capsule was moved to the medial side, leaving the conjoined and piriformis tendons isolated in the face of the greater trochanter. The hip was externally rotated and elevated. A release of the conjoined tendon was [not] necessary in order to obtain adequate exposure for broaching. The canal was opened with an opening broach and a rasp was used to remove cancellous bone. A rongeur was used to remove the residual lateral bone at the base of the greater trochanter to avoid placing the stem in varus. The femur was then broached to the appropriate sized stem yielding good rotational fit and fill of the canal as well as appropriate version of the stem trial. Neck and head trials were placed, all retractors were removed and the hip was returned to neutral abduction and extension. I then reduced the hip and manually trialed it before changing surgical gloves. Initial trialing was performed with a size 9 broach, a high offset neck and a +0 head. I initially manually externally rotated the hip and found no instability. I then locked the hip in 45 degrees of external rotation and dropped it to the floor with traction off which demonstrated no instability. An AP pelvis fluoroscopic image matching the preoperative standing radiograph with both lesser trochanters visible and both hips in 40 degrees of external rotation demonstrated appropriate leg length and offset. AP and lateral hip fluoroscopic images were obtained to evaluate the broach size which demonstrated good canal fill. The hip was dislocated and I returned to the broaching position. Based on my evaluation during initial trialing I planned to place these definitive implants. The definitive stem was placed and the trunnion was cleaned and dried. I placed a ceramic head onto the trunnion and impacted it into place on the [place] taper.?? All retractors were removed and the hip was reduced. A dilute mixture of betadine and peroxide was used to bathe the soft tissues during final fluoroscopic assessment. Appropriate component positioning was confirmed on an AP pelvis radiograph with the operative and nonoperative legs in 40 degrees of external rotation, evaluating leg length and offset. Appropriate stem fill was evaluated on AP and lateral hip radiographs. No previously unrecognized fractures were identified on these radiographs. The hip dislocated with 100? of external rotation. The construct parameters at that point in time were approximately equal, with slightly decreased offset and slightly increased length. In order to resolve the instability I elected to upsize the femoral head. I returned to the broaching position and removed the head. I ensured that the stem remained well seated. I placed a +3.5 head on a clean dry trunnion and removed all retractors and reduced the hip. The hip now did not dislocate with maximum external rotation which was about 100?. The construct measured slightly long fluoroscopically with equal offset. I ultimately decided that it was preferable to have the operative side slightly long rather than to risk instability. The hip was copiously irrigated with pulse lavage. The capsule was closed with absorbable interrupted suture. The TFL fascia was closed with barbed suture while carefully protecting the lateral femoral cutaneous nerve from entrapment. A mixture of Ropivacaine, Epinephrine and Toradol was infiltrated throughout the soft tissues. The skin was closed with 2-0 and 3-0 sutures. Surgical glue was applied and a soft dressing was placed.??The sponge, instrument and needle counts were reported as being correct at the end of the case.??No obvious complications occurred. The patient was transferred from the [place] table back to a stretcher. The patient emerged from anesthesia without difficulty and was taken to the PACU in a stable condition.? Plan for aftercare: * No hip precautions * Weightbearing as tolerated * Lovenox for DVT prophylaxis with transitioned back to warfarin and close INR checks postoperatively * Anticipate discharge home tomorrow * Incisional wound VAC is in place and should remain in place until follow up in clinic. The battery will after a week at which point the cord can be removed and it can be used as a normal dressing. * Multimodal pain regimen with no IV opioids ordered * Follow up at [facility] in 2 weeks Complications: none Post-operative Condition: stable Disposition: PACU
--- NOTE | 2025-05-14 15:00 | DI.RAD.S_ITS ---
PROCEDURE: XR HIP W PEL IF DONE LT 2V INDICATIONS: POST OP LEFT ANTERIOR HIP TECHNIQUE: Two views of the left hip were acquired. COMPARISON: [facility], CR, XR HIP W PEL LT 2V, 05/14/2025, 13:37. FINDINGS: Bones: There are no osseous abnormalities. SI and hip joints: Left total hip prosthesis in near anatomic alignment without evidence of loosening or other complication. Mild right hip degeneration noted. Os acetabuli noted on the right side. SI joints are normal. Soft tissues: Multiple calcifications seen expected location of the prostate. gas soft tissue swelling over the surgical site as expected IMPRESSION: Left hip prostheses unremarkable. Dictated by: Jc Pena M.D. on 05/15/2025 at 10:29 Approved by: Jc Pena M.D. on 05/15/2025 at 10:30
[2025-05-14] MEDS: OXYCODONE IR 5 MG TABLET PO (15:51)
--- NOTE | 2025-05-14 16:26 | PC.NURSE ---
Arrival note: Patient arrived to unit at approx 4 pm. Alert and oriented. SBA w/ FWW to unit bed from [facility]. Tolerating pain to surgical site; reports 02/10, denies further intervention at this time. Dressing is CDI; CMS intact. VSS. Calm in bed. Oriented to room and call light. Denies further needs at this time.
[2025-05-14] MEDS: LACTATED RINGERS 1,000 ML 100 ML IV ×2 (17:00→21:15)
[2025-05-14] MEDS: DOCUSATE 100 MG CAPSULE PO (20:59)
--- NOTE | 2025-05-15 02:40 | PC.NURSE ---
Patient is alert and oriented. Breath sounds CTA with RA sat of 95%; on continuous pulse oximetry. HRR. Denied nausea. BT present and is passing flatus but has not had a BM since 05/10; medicated with Colace but patient declined Miralax. Had not voided since prior to surgery so stood at bedside but only able to urinate 50cc. Bladder scan indicated 407cc in bladder so straight cath performed for 400cc clear, dark lamonte urine. Is able to turn himself in bed. Out of bed with walker and SBA. Wearing bilateral calf SCD's. MARILIN dressing to left anterior hip is CDI and functioning. Noted to have blanchable redness on coccyx so encouraged to reposition which he demonstrated he could do independently but advised staff can assist if needed. Denied pain and declined scheduled Tylenol. Has ice machine providing cold application. CMS is intact. Fall risk score is high and bed alarm is activated.
[2025-05-15 06:18] LABS: Hematocrit 37.7 % (41-53); Hemoglobin 12.8 g/dL (13.5-17.5)
--- NOTE | 2025-05-15 06:39 | PM.DS.IH.1 ---
History of Present Illness History of Present Illness [place] [facility] [place] [facility] [place] Narrative: 69 year old male with a past medical history of factor V Leiden presented to [facility] on 05/14/25 for an elective left anterior total hip arthroplasty with Dr Lee for primary left hip osteoarthritis. He reported anterior groin pain limiting his ability to walk long distances. His pain persisted despite physical therapy and an intra-articular corticosteroid injection leading to the decision for surgery. Discharge Providers Provider Discharge Date: 05/15/25 Primary care physician: Ok Douglass MD Consults: 05/13/25 23:10 Consult to Anesthesiology Routine Comment: Consulting Provider: Anesthesiologist Reason for consultation: Regional block for post operative pain control 05/14/25 15:21 Consult to Discharge Planning Routine Comment: Consult to Occupational Therapy Evaluate & Treat Comment: Physician Instructions: Evaluate and treat Consult to Physical Therapy Evaluate & Treat Comment: Physician Instructions: post op RADHA protocol 05/14/25 17:02 Consult to Discharge Planning Routine Comment: Consult to Physical Therapy Evaluate & Treat Comment: Physician Instructions: post op RADHA protocol Discharge provider: ARIS Jean Baptiste Dr Summary Hospital Course Hospital Course: On 05/14/25 he was brought to the operating room for a planned left anterior total hip arthroplasty by Dr Lee. There were no known immediate complications. After recovery in PACU he was transferred to the floor where he was monitored overnight. He was placed on low flow oxygen for low oxygen saturations which resolved by the morning and he was breathing comfortably on room air. Overnight he was also having difficulty making urine and a straight catheter withdrew 400 cc of urine from his bladder. He does have a known history of BPH under the care of Dr Oro and he has some difficulty passing urine at baseline. There were no acute events overnight. On post operative day 1 his pain was well controlled on oral medications and his vital signs were stable. He voided 380 cc of urine spontaneously and was awaiting evalaution by physical therapy during orthopedic evaluation. He was comfortable with planned discharge home in accordance with pre-operative plan. Exam Vital Signs (past 8 hours): - 05/14/25 23:00 05/15/25 03:00 Temperature 97 F L Pulse Rate 75 Respiratory Rate 18 Blood Pressure 137/73 Pulse Oximetry 97 Oxygen Flow Rate 0 1 Oxygen Delivery Method Room Air Oxygen Flow Rate 1 Narrative Exam Narrative: well developed, well nourished, 69 year old male, no acute distress Breathing comfortable on room air without respiratory distress Haris dressing is dry and intact without drainage or hematoma to left hip Femoral and sciatic nerve function intact Objective ECG Impression: Hgb 12.8 Labs 05/15/25 05:13 Labs: Laboratory Results - last 24 hr 05/14/25 05/15/25 09:03 05:13 Hgb 12.8 L Hct 37.7 L Blood Type A Positive Antibody Screen Negative [facility] Medical History (Updated 05/08/25 @ 09:09 by Renata Plascencia RN) Pulmonary embolism (~2003) History of DVT (deep vein thrombosis) (03/2024) Primary osteoarthritis of left hip Factor 5 Leiden mutation, heterozygous Abnormal cystoscopy Degenerative joint disease (DJD) of hip Degenerative cervical spinal stenosis Facet arthropathy, cervical Cervical disc disorder at C6-C7 level with radiculopathy Factor V Leiden Kidney stones Enlarged prostate Hyperlipemia Hypertension Surgical History (Updated 05/08/25 @ 09:11 by Renata Plascencia RN) Hx of shoulder surgery (Unknown) S/P cervical spinal fusion (02/2024) H/O vasectomy History of esophagogastroduodenoscopy (EGD) History of removal of calculus of renal pelvis through percutaneous nephrostomy Family History Father BPH with obstruction/lower urinary tract symptoms Diabetes mellitus Cancer Mother Hyperlipidemia Factor 5 Leiden mutation, heterozygous Urinary tract infection Other Hypertension Social History marital status: number of children: 2 household members: none occupational status: previously employed leisure activities: exercise other: STRETCHING AND WALKING Smoking Status: Never smoker alcohol intake: former caffeine: Yes Type(s) of exercise: walking Discharge Assessment & Plan Assessment and Plan Assessment: 69 year old male with a past medical history of factor V Leiden with a history of pulmonary embolism is post operative day one from an anterior left total hip arthroplasty by Dr Lee on 05/14/25 at [facility]. He is recovering well with stable vital signs, adequate pain control and is hopeful to return home today pending evaluation by physical therapy this morning. He will start lovenox subcutaneously this morning and resume his normal home warfarin this evening in accordance with his normal home medication schedule. INR to be checked 2 days after surgery. Plan:? Weightbearing as tolerated to left lower extremity with front wheeled walker? Anterior hip precautions? DVT prophylaxis with lovenox and warfarin today. INR check 48 hours after surgery Continue multimodal analgesia with Tylenol and tramadol. Avoid NSAIDs Bowel regimen as needed? Physical therapy evaluation and treatment today? Follow up with orthopedics 2 weeks post operatively? Wound vac dressing to remain in place until follow up visit unless saturated or disrupted All post operative medications ordered at pre operative visit? Ice to surgical site as needed? Discharge Plan Discharge Plan Patient Disposition: Home Provider Discharge Comment: Take 1000 mg of Tylenol every 8 hours for pain control Use tramadol as a breakthrough pain medication for severe pain despite oral Tylenol Take [id number] Colace to promote a bowel movement It has been more than 48 hours from discharge and you have still not had a bowel movement please call our office for further guidance Please have your INR checked on 05/17/2025 at [facility], an order has been placed Discharge orders & Medications Discharge Orders: Discharge (Order); Ordered 05/15/25 Ordered By: [place] Prescriptions: Continued warfarin 5 mg tablet 5 mg PO DAILY cholecalciferol (vitamin D3) 125 mcg (5,000 unit) capsule 125 mcg PO DAILY ascorbic acid (vitamin C) 500 mg capsule 500 mg PO DAILY vitamin B complex Capsule 1 cap PO DAILY tamsulosin 0.4 mg capsule 0.8 mg PO DAILY enoxaparin 40 mg/0.4 mL syringe Patient Comments: [NO ORIGINAL SIG] acetaminophen [Tylenol Extra Strength] 500 mg tablet 1,000 mg PO Q8H PRN (Reason: post-op pain) Qty: 90 1RF (DME) Ice Machine with Compression See Rx Instructions .Route .MEDSUPPLY Qty: 1 0RF Rx Instructions: As directed tramadol 50 mg tablet 50 mg PO Q6H PRN (Reason: pain) Qty: 25 0RF warfarin 1 mg tablet 1 mg PO DAILY atorvastatin 10 mg tablet 10 mg PO DAILY Patient Comments: TAKE 1 TABLET BY MOUTH EVERY DAY finasteride 5 mg tablet 5 mg PO DAILY lisinopril-hydrochlorothiazide 20-25 mg tablet 1 tab PO DAILY Follow up/Referrals: Garrick Lee MD [Physician, Orthopedic Surgery] Ok Douglass MD [Primary Care Provider, Family Practice] Diet/Activity/Treatments Diet: Diet as Tolerated and Low-sodium Activity: Weight bearing as tolerated to the left lower extremity with front wheeled walker Limit steps to no more than 1000 steps per day in the first week post operatively Anterior hip precautions Cold/Heat Therapy: Ice to hip as needed Skin/Wound/Dressing Care Report to your healthcare provider any signs of infection, such as:: chills, fever, night sweats, unusual drainage and unusual redness Dressing: Leave Picco wound vac dressing in place to left hip until follow up in the orthopedic clinic The battery will in 1 week. You may cut off the battery cord only in 1 week when it dies Leave the water proof dressing in place for 2 weeks. Call our office if the dressing is saturated or disrupted for further guidance Visit Report/Discharge Packet Instructions: DI for Hip Replacement Stand Alone Forms: Patient Portal/API Print Language: Zimbabwean Discharge Data Primary Care Provider: Ok Douglass Attending Provider: Garrick Lee VTE Deep Vein Thrombosis/Pulmonary Embolism Present on Admission: No IH PROFEE Charge Codes Discharge inpatient/observation: [id number]
[2025-05-15 08:35] VITALS: BP 129/80; PULSE 68; RESP 17; TEMP 36.3; O2SAT 100
[2025-05-15] MEDS: ENOXAPARIN 40 MG/0.4 ML SYRINGE SUBCUT (08:41)
[2025-05-15] MEDS: ATORVASTATIN 20 MG TABLET 10 MG PO (08:42)
[2025-05-15] MEDS: ACETAMINOPHEN 325 MG TABLET 650 MG PO (08:44)
[2025-05-15] MEDS: DOCUSATE 100 MG CAPSULE PO (08:46)
[2025-05-15] MEDS: ASCORBIC ACID 500 MG TABLET PO (08:46)
[2025-05-15 08:49] VITALS: BP 172/88
--- NOTE | 2025-05-15 09:33 | OT.IP.EVAL ---
Current Diagnoses Unilateral primary osteoarthritis, left hip (05/14/25) Surgery Performed Operation Date: 05/14/25 10:45 Actual Procedures p Total Hip Arthroplasty/Anterior Approach(Left) - Garrick Lee MD Past Medical History (Last Updated 05/08/25 @ 09:09 by Renata Plascencia, RN) Abnormal cystoscopy Cervical disc disorder at C6-C7 level with radiculopathy Degenerative cervical spinal stenosis Degenerative joint disease (DJD) of hip Enlarged prostate Facet arthropathy, cervical Factor 5 Leiden mutation, heterozygous Factor V Leiden History of DVT (deep vein thrombosis) (03/2024) Hyperlipemia Hypertension Kidney stones Primary osteoarthritis of left hip Pulmonary embolism (~2003) Surgical History (Last Updated 05/08/25 @ 09:11 by Renata Plascencia RN) H/O vasectomy History of esophagogastroduodenoscopy (EGD) History of removal of calculus of renal pelvis through percutaneous nephrostomy Hx of shoulder surgery (Unknown) S/P cervical spinal fusion (02/2024) Occupational Therapy Inpatient Evaluation/Re-Eval M1 PT/OT-IP Prior Functional Status Start: 05/15/25 09:20 Freq: NEEDED Status: Active Protocol: Document 05/15/25 09:21 [facility] (Rec: 05/15/25 09:32 [facility] Desktop) Medical Review Prior Functional Status Communication I Mobility and Gait I and able to walk 50-100 yards without a device. Activities of Daily I Living and IADL's Social History Household Members none Living Arrangements House Number of Floors ( Two Floors Floors) Number of Stairs To NO steps to enter and 12 steps with bilateral rails to Enter/Railing? get to the walk in shower that he prefers to use, but able to use tub/shower downstairs if needed. Home Environment High Toilet,Walk in Shower,Tub/Shower Home Equipment Four Wheel Walker,Hand Held Shower Additional Social Pt's daughter in law to stay with him for 5 days. History Comment M2 OT-IP Current Condition Start: 05/15/25 09:20 Freq: Status: Active Protocol: Document 05/15/25 09:21 [facility] (Rec: 05/15/25 09:32 [facility] Desktop) Occupational Therapy Current Condition Current Condition Evaluation Date 05/15/25 Treatment Diagnosis S/P L RADHA anterior approach Diagnosis Onset Date 05/14/25 Post Operative Precautions Other Precautions Per Dr. Lee operative report no hip precautions, per JAC [place] no hyperextension as she checked off Anterior precautions. Weight Bearing Status Weight Bearing Weight Bear as Tolerated Status M3 OT- IP Subjective and Pain Start: 05/15/25 09:20 Freq: Status: Active Protocol: Document 05/15/25 09:21 [facility] (Rec: 05/15/25 09:32 [facility] Desktop) OT- Subjective Occupational Therapy Visit Type Type Initial Evaluation Visit Start Time 08:30 Visit Stop Time 09:10 Occupational Therapy Visit Comments Patient Comments Pt agreed to get up. Patient/Caregiver TO go home. Goals OT Pain Assessment Pain When Pain Assessed At Rest Pain Present Pain Present Pain Reported Location left hip Intensity 2 Scale Used Numeric (0 - 10) M4 OT- IP ADL's Start: 05/15/25 09:20 Freq: Status: Active Protocol: Document 05/15/25 09:21 [facility] (Rec: 05/15/25 09:32 [facility] Desktop) OT EDC-Ooqx-Bxakbri General Evaluation Self-Feeding Ability Independent OT ADL-Grooming Comments OT Grooming Comments Pt states did earlier. OT ADL-Oral Care Comments Oral Care Comments Not perfromed. OT ADL-Dressing Comments OT Dressing Comments Spoke of use of compression sock aid. Suggested to dress the LLE first and take out last. OT ADL-Toileting Comments OT Toileting Pt not having to go. Spoke of use of urinal if needed Comments at night and to be sure to have a night light and get rid of rugs. OT ADL-Bathing Comments OT Bathing Comments Educated best to have a shower chair and care of dressing while showering. M5 OT- IP IADL's Start: 05/15/25 09:20 Freq: Status: Active Protocol: Document 05/15/25 09:21 [facility] (Rec: 05/15/25 09:32 [facility] Desktop) OT-Instrumental Activities of Daily Living Home Safety Awareness Awareness of Need Good Awareness for Assistance at Home Ability to Problem Able to Problem Solve Solve Emergency Situations Medication Management Medication No Deficits Identified Management Money Management Money Management No Deficits Identified Meal Preparation Meal Preparation Pt to have assist. Comments Political Cartoonist Political Cartoonist Pt to have assist. Comments M6 OT- IP Functional Cognition Start: 05/15/25 09:20 Freq: Status: Active Protocol: Document 05/15/25 09:21 [facility] (Rec: 05/15/25 09:32 [facility] Desktop) Cognitive Factors Limiting Selfcare Function Cognitive Ability Level of Alertness Alert Patient Orientation Name,Age,Birthday,Month,Date,Year,Day of Week,Place, Situation Attention Span Capable of Focused Attention,Capable of Sustained Ability Attention Ability to Follow Able to Follow One Step Commands Commands Cognitive Comments Cognitive Assessment Pt needing reassurance but able to follow commands for Comments ADL and mobility needs. OT- Vision and Hearing OT- Vision Assessment Visual Acuity Glasses For Reading Visual Attentiveness WFL Occular Pursuits WFL M7 OT- IP Mobility and Balance Start: 05/15/25 09:20 Freq: Status: Active Protocol: Document 05/15/25 09:21 [facility] (Rec: 05/15/25 09:32 [facility] Desktop) OT- Bed Mobility Assessment Supine to Sit Supine to Sit Assist Standby Assistance Scooting Scooting to Edge of Standby Assistance Bed Scooting Up and Down Standby Assistance in Bed OT-Transfer Assessment Sit to and From Stand Sit to and from Standby Assistance Stand Transfers Transfer Ability Standby Assistance,Contact Guard Assistance Technique Transfer Destination Bed,Chair Transfer Technique Stand Step Pivot Devices Transfer Assistive Gait Belt,Front Wheeled Walker,4 Wheeled Walker Devices Comments Mobility Comments Pt needing close SBA to occasional CGA with 4ww. Best to get a FWW which can be used upstairs or in general.Educated how to use the 4ww and lock the brakes. When over LLE exercises. OT- Balance Assessment Sitting Balance and Reactions Static Sitting Normal Balance Ability Dynamic Sitting Good Balance Ability Standing Balance and Reactions Static Standing Good Balance Ability Dynamic Standing Fair Balance Ability M8 OT- IP Objective Assessments Start: 05/15/25 09:20 Freq: Status: Active Protocol: Document 05/15/25 09:21 [facility] (Rec: 05/15/25 09:32 [facility] Desktop) OT Gross Range of Motion Upper Extremity Range of Motion Assessment Within Functional Limits ROM Impairments Grossly WFL RUE, WFL LUE OT Strength Upper Extremity Strength Assessment Within Functional Limits M9 OT- IP Assessment and Plan Start: 05/15/25 09:20 Freq: Status: Active Protocol: Document 05/15/25 09:21 [facility] (Rec: 05/15/25 09:32 [facility] Desktop) OT Summary Assessment and Plan Potential Rehabilitation Excellent Potential Analytic Complexity Low at Evaluation Summary OT Impairments Pain,Balance,Functional Mobility,Dressing,Toileting, Bathing,Toilet Transfers,Shower Transfers Progress Towards Progressing Toward Goals Goals Assessment Summary Pt low complexity and main barriers are steps, pain, and having high BP. BP HOB up 171/85, supine 150/72, sitting 160/82 and standing 172/85, nursing aware and pt states has not had his BP meds for a couple days. Pt to go home when medically stable with assist. Pt will benefit from FWW, shower chair, and compression sock aid. Goals Grooming Goal Independent Dressing Goal Minimal Assistance Toileting Goal Independent Bathing Goal Standby Assistance Toilet Transfer Goal Independent Shower Transfer Goal Standby Assistance Days to Meet Goals 5 Frequency of Treatment Other frequency 5x/week Treatment Plan OT Treatment Plan ADL Training,Functional Mobility,Patient/Family Education,Discharge Planning Discharge Recommendations OT Discharge Home with Assistance Recommendations Home Equipment Needs shower chair, FWW, compression sock aid Transportation Needs Private Vehicle at Discharge
--- NOTE | 2025-05-15 09:44 | CM.DANOTE ---
Initial DCP Assessment Note Pt is a 69 yo male, resident of [place], s/p left RADHA by Dr Lee. PCP: Ok Douglass Payer: [facility] Reviewed chart, pt discussed in multidisciplinary rounds this morning. Therapy has cleared pt for return home w/family to assist and pt has planned for home, DC Summary from Ortho has already been initiated this morning. Waiting on DC order. No barriers identified at this time to patient's safe discharge home w/family to assist throughout recovery; close outpatient f/u recommended. Social work team will plan to follow clinical course closely in case any DC needs or concerns arise. ELVIRA Champion Discharge Planning/Care Management CM Discharge Assessment Start: 05/14/25 16:27 Freq: Status: Active Protocol: Document 05/15/25 09:34 YEE (Rec: 05/15/25 09:44 YEE [id number]) Discharge Planning Assessment Assigned Discharge ELVIRA Ruiz [employer] DPOA/Assigned Ryan Feliz, sister Designee Name Contact Information [phone] Advance Directives? Yes Advance Directives No on File History Provided By Patient Prior Living House Arrangements Comment Daughter in law Swati with stay with pt at DC Household Members none Type of Drives own vehicle transportation used prior to admit Independent with ADL Yes 's Is patient alert and Yes oriented? Comment Independent Patient/Family OP PT Therapy,OP OT Therapy Preference Comment Home w/family Barriers to No Discharge Discharge Plan Home Transportation Family Arrangement Referrals Initiated None needed
[2025-05-15 10:03] VITALS: BP 172/88
[2025-05-15] MEDS: CHOLECALCIFEROL (VITAMIN D3) 5,000 UNIT TABLET 5000 UNIT PO (10:03)
--- NOTE | 2025-05-15 10:40 | PT.IIE ---
Current Diagnoses Unilateral primary osteoarthritis, left hip (05/14/25) Surgery Performed Operation Date: 05/14/25 10:45 Actual Procedures p Total Hip Arthroplasty/Anterior Approach(Left) - Garrick Lee MD Surgical History (Last Updated 05/08/25 @ 09:11 by Renata Plascencia, RN) H/O vasectomy History of esophagogastroduodenoscopy (EGD) History of removal of calculus of renal pelvis through percutaneous nephrostomy Hx of shoulder surgery (Unknown) S/P cervical spinal fusion (02/2024) Medical History (Last Updated 05/08/25 @ 09:09 by Renata Plascencia, RN) Abnormal cystoscopy Cervical disc disorder at C6-C7 level with radiculopathy Degenerative cervical spinal stenosis Degenerative joint disease (DJD) of hip Enlarged prostate Facet arthropathy, cervical Factor 5 Leiden mutation, heterozygous Factor V Leiden History of DVT (deep vein thrombosis) (03/2024) Hyperlipemia Hypertension Kidney stones Primary osteoarthritis of left hip Pulmonary embolism (~2003) Physical Therapy Inpatient Evaluation/Re-Eval M1 PT/OT-IP Prior Functional Status Start: 05/15/25 13:01 Freq: NEEDED Status: Active Protocol: Document 05/15/25 10:40 AB (Rec: 05/15/25 13:14 AB [id number]) Medical Review Prior Functional Status Medical History Yes Reviewed Communication able to make needs known Mobility and Gait pt stated that he was independent with all mobilities and ambulation without AD Activities of Daily I Living and IADL's Social History Household Members none Living Arrangements House Number of Floors ( Two Floors Floors) Number of Stairs To no steps to enter Enter/Railing? 12 steps B rails to 2nd level Home Environment High Toilet,Walk in Shower,Tub/Shower Home Equipment Four Wheel Walker,Shower Seat with Backrest Additional Social pt's DIL will stay with pt for a few days to assist him History Comment pt stated that he will get a FWW but currently only has a 4WW M2 PT-IP Current Condition Start: 05/15/25 13:01 Freq: NEEDED Status: Active Protocol: Document 05/15/25 10:40 AB (Rec: 05/15/25 13:14 AB [id number]) Physical Therapy Current Condition Current Condition Evaluation Date 05/15/25 Treatment Diagnosis s/p L RADHA anterior; difficulty in walking Onset Date 05/14/25 M3 PT-IP Subjective Start: 05/15/25 13:01 Freq: NEEDED Status: Active Protocol: Document 05/15/25 10:40 AB (Rec: 05/15/25 13:14 AB [id number]) Subjective Physical Therapy Visit Type Type Initial Evaluation Visit Start Time 10:40 Visit Stop Time 11:20 Number of BASIC COMBATANT SWIMMER Visits 0 Physical Therapy Visit Comments Patient Comments agreeable to do PT Therapy Pain Assessment Pain When Pain Assessed At Rest Location left hip Intensity 3 Scale Used Numeric (0 - 10) Pain Management Apply Cold,Distraction,Modification of Treatment,Re- Techniques positioning,Timing of Activity with Medications M4 PT-IP Mobility and Gait Start: 05/15/25 13:01 Freq: NEEDED Status: Active Protocol: Document 05/15/25 10:40 AB (Rec: 05/15/25 13:14 AB [id number]) PT-Bed Mobility Assessment Supine to Sit Supine to Sit Standby Assistance Sit to Supine Sit to Supine Standby Assistance PT-Transfer Assessment Sit to and From Stand Sit to and from Standby Assistance,Contact Guard Assistance,1 Person Stand Assistance,Use of Upper Extremities Equipment Transfer Assistive Gait Belt,4 Wheeled Walker Device Orthotic/Prosthetic No Devices or Brace: Transfers Transfer Destination Bed,Chair Transfer Technique ambulated Transfer Ability Level of Assist Standby Assistance,1 Person Assistance,Use of Upper Extremities Comments Mobility Comments pt sitting on the chair and agreeable to do PT. obtained PLOF and home set up. per Dr. Lee : no hip precautions but per PA: standard anterior hip precautions. educated pt on hip precautions. pt completed sit to stand CGA and cues for techniques. pt ambulated to EOB using 4WW SBA. completed sit<> supine SBA with cues for techniques. educated pt on use of 4WW/brakes. 4WW adjusted for pt. pt completed sit to stand from EOB SBA and cues for techniques. completed again without cues. pt ambulated in the hallway using 4WW SBA ~ 200 ft. completed up/down steps using B rails SBA and cues for techniques. repeated another set without cues and was able to complete SBA. pt ambulated back to his room SBA using 4WW and sat back on his chair. call light and table placed next to pt. pt without any other concerns. Gait Assessment Gait Gait Assistance Standby Assistance Required: Distance (Feet) 200 Able to Maintain Yes Weight Bearing Status During Gait Assistive Devices Assistive Device Gait Belt,4 Wheeled Walker Gait Deviations General Gait Pattern Antalgic,Decreased Stride Length,Decreased Feet Clearance Factors Limiting Gait Function Factors Limiting Decreased Activity Tolerance,Decreased Strength,Limited Gait Function Range of Motion,Pain Stair Climbing Assessment Evaluation Level of Assist On Standby Assistance Stairs Devices Stair Climbing Left Railing,Right Railing Assistive Devices Technique/Endurance Stair Climbing Ascend and Descend Direction Number of Steps 3 Climbed Query Text: Stair Climbing Set # 2 Repetitions (reps) PT-Balance Assessment Sitting Balance and Reactions Static Sitting Normal Balance Ability Dynamic Sitting Good Balance Ability Standing Balance and Reactions Static Standing Good Balance Ability Dynamic Standing Fair Balance Ability Device Used 4WW M5 PT-IP Objective Assessments Start: 05/15/25 13:01 Freq: NEEDED Status: Active Protocol: Document 05/15/25 10:40 AB (Rec: 05/15/25 13:14 AB [id number]) Orientation Orientation/Cognition Level of Alertness Alert Orientation Name,Place,Situation Language Function No Deficits Noted Ability Safety Awareness Understands Safety Issues Memory Description No Deficits Noted Gross Range of Motion Lower Extremity ROM Assessment Within Functional Limits Strength Lower Extremity Strength Assessment Left Impaired Hip 3-/5 Knee 4-/5 Coordination Assessment Gross Coordination Gross Coordination WNL Sensation Assessment Sensation Gross Sensation WNL Muscle Tone Muscle Tone WNL Yes M6 PT-IP Treatment Start: 05/15/25 13:01 Freq: NEEDED Status: Active Protocol: Document 05/15/25 10:40 AB (Rec: 05/15/25 13:14 AB [id number]) Physical Therapy Treatment Education Education Provided Precautions,Weight Bearing Status,Safety M7 PT-IP Assessment and Plan Start: 05/15/25 13:01 Freq: NEEDED Status: Active Protocol: Document 05/15/25 10:40 AB (Rec: 05/15/25 13:14 AB [id number]) PT Summary Assessment and Plan Potential Rehabilitation Good Potential Status of Condition Stable at Evaluation Summary Impairments Pain,ROM,Strength,Balance,Bed Mobility,Transfers,Gait, Activity Tolerance Assessment Summary pt is a 69 y/o M s/p L RADHA anterior approach POD 1. pt is WBAT. per Dr. Lee, pt does not have any hip precautions but per PA, pt has anterior hip precautions . educated pt on hip precautions for safety. pt requiring SBA with mobility using 4WW. pt will have his DIL to assist him for a few days at home. pt h as outpt PT set up. pt may go home when medically stable. Goals Bed Mobility Goal Independent Transfer Goal Independent,Four Wheeled Walker Gait Goal Independent,Four Wheel Walker Gait Distance 300 Other Goals up/down 12 steps B rails mod I Days to Meet Goals 3 Frequency of Treatment Frequency Of Twice a Day Treatment Treatment Plan Physical Therapy Bed Mobility Training,Transfer Training,Gait Training, Treatment Plan Therapeutic Exercise,Balance Retraining,Post Op Education,Discharge Planning,Hot or Cold Pack, Neuromuscular Re-ed,Coordination Retraining,Manual Therapy Precautions Anterior Hip No Hip Extension,No Hip External Rotation Precautions Weight Bearing Status Weight Bearing Weight Bear as Tolerated Status Allowed Weight LLE WBAT Bearing Amount ( enter % or #) (%) Recommendations To Nursing Amount of Assist Standby Assistance Needed Discharge Recommendations PT Discharge Home with Assistance,Outpatient PT Recommendations Transportation Needs Private Vehicle at Discharge - PT assist 1
--- NOTE | 2025-05-15 13:28 | PC.NURSE ---
Discharge Note Patient A&O, VSS, RA, no complaints of pain/discomfort. Discharge packet reviewed with patient, all questions/concerns. PIV discontinued. Patient able to dress self and pack all belongings with assistance. Patient taken down via wheelchair to POV.
== END 2025-05-15 13:00 | disposition home or self-care (01) ==
LOC: OR 15:17 → AC 16:21
PROVIDERS: Physician Assistant Surgical; PCP Family Medicine; Referring Provider Orthopaedic Surgery Adult Reconstructive Orthopaedic Surgery; Visit Provider Orthopaedic Surgery Adult Reconstructive Orthopaedic Surgery
PROC: (CPT 27130; principal; 2025-05-14 10:45)
DX: M16.12 Unilateral primary osteoarthritis, left hip (principal); D68.51 Activated protein C resistance; Z79.01 Long term (current) use of anticoagulants; Z86.711 Personal history of pulmonary embolism; M25.752 Osteophyte, left hip
CPT/HCPCS: 27130; 36415; 73502; 76000; 85014; 85018; 85610; 86850; 86900; 86901; 97116; 97161; 97165; 97530; C1713; C1776; J0330; J0690; J1100; J1171; J1650; J1885; J2405; J2704; J3010; J3490

== ENCOUNTER → 2025-06-14 07:46 | Outpatient (ROUT) | payer OTHER, SELFPAY ==
[2025-05-14 16:28] VITALS: BMI 32.3
[2025-06-14 07:58] LABS: INR 2.1 (0.9-1.3); Prothrombin Time 22.9 SECONDS (9.4-12.5)
== END ==
PROVIDERS: PCP Family Medicine; Visit Provider Family Medicine
DX: D68.59 Other primary thrombophilia (principal); D68.51 Activated protein C resistance
CPT/HCPCS: 85610

== ENCOUNTER → 2025-07-13 08:36 | Outpatient (ROUT) | payer OTHER, SELFPAY ==
[2025-05-14 16:28] VITALS: BMI 32.3
[2025-07-13 08:46] LABS: INR 2.3 (0.9-1.3); Prothrombin Time 26.0 SECONDS (9.4-12.5)
== END ==
PROVIDERS: PCP Family Medicine; Visit Provider Family Medicine
DX: D68.59 Other primary thrombophilia (principal); D68.51 Activated protein C resistance
CPT/HCPCS: 85610

== ENCOUNTER → 2025-08-09 08:04 | Outpatient (ROUT) | payer OTHER, SELFPAY ==
[2025-05-14 16:28] VITALS: BMI 32.3
[2025-08-09 08:22] LABS: INR 1.7 (0.9-1.3); Prothrombin Time 19.2 SECONDS (9.4-12.5)
== END ==
PROVIDERS: PCP Family Medicine; Visit Provider Family Medicine
DX: D68.59 Other primary thrombophilia (principal); D68.51 Activated protein C resistance
CPT/HCPCS: 85610

== ENCOUNTER → 2025-08-23 07:40 | Outpatient (ROUT) | payer OTHER, SELFPAY ==
[2025-05-14 16:28] VITALS: BMI 32.3
[2025-08-23 07:48] LABS: INR 2.0 (0.9-1.3); Prothrombin Time 22.2 SECONDS (9.4-12.5)
== END ==
LOC: LAB 07:42
PROVIDERS: PCP Family Medicine; Visit Provider Family Medicine
DX: D68.59 Other primary thrombophilia (principal); D68.51 Activated protein C resistance
CPT/HCPCS: 85610

== ENCOUNTER → 2025-09-20 09:21 | Outpatient (ROUT) | payer OTHER, SELFPAY ==
[2025-05-14 16:28] VITALS: BMI 32.3
[2025-09-20 09:27] LABS: INR 1.9 (0.9-1.3); Prothrombin Time 20.8 SECONDS (9.4-12.5)
== END ==
LOC: LAB 09:21
PROVIDERS: PCP Family Medicine; Visit Provider Family Medicine
DX: D68.51 Activated protein C resistance (principal); D68.59 Other primary thrombophilia
CPT/HCPCS: 36415; 85610